=== PATIENT | male | born 1970 | race African-American/Black ===

== ENCOUNTER 2018-11-26 18:05 | Inpatient (IN) | payer MEDICAID, OTHER ==
[~2018-11-26] VITALS: Ht 182.9 cm; Wt 115.2 kg
[2018-11-26] MEDS ORDERED: HALOPERIDOL 5 MG TABLET PO ONE (18:30)
[2018-11-26] MEDS ORDERED: LORazepam 2 MG TABLET PO ONE (18:30)
[2018-11-26 18:42] LABS: BASOPHILS % (AUTO) 0.9 % (0.0-2.0); EOSINOPHILS % (AUTO) 2.1 % (1.0-6.0); HEMOGLOBIN 13.8 g/dL (13.5-17.5); LYMPHOCYTES % (AUTO) 36.1 % (22.0-44.0); MEAN CORPUSCULAR HEMOGLOBIN 31.1 pg (26.0-34.0); MEAN CORPUSCULAR HGB CONC 32.9 G/dL (31.0-37.0); MEAN CORPUSCULAR VOLUME 95 fL (80-100); MONOCYTES # (AUTO) 0.4 K/uL (0.1-1.0); MONOCYTES % (AUTO) 7.5 % (2.0-9.0); NEUTROPHILS # (AUTO) 2.9 K/uL (1.8-7.7); NEUTROPHILS % (AUTO) 53.4 % (40.0-70.0); PLATELET COUNT (AUTO) 195 K/uL (150-450); RED BLOOD CELL COUNT(AUTO) 4.44 MIL/uL (4.50-5.90); RED CELL DISTRIBUTION WIDTH 13.3 % (11.5-14.5)
[2018-11-26 18:57] LABS: ANION GAP 9 mmol/L (8-16); CARBON DIOXIDE 25 mmol/L (22-29); CHLORIDE 104 mmol/L (98-107); CREATININE 1.21 mg/dL (0.60-1.30); GLOMERULAR FILTR. RATE CALC > 60 mL/min (>60); GLUCOSE,RANDOM 185 mg/dL (70-110); POTASSIUM 3.2 mmol/L (3.5-5.1); SODIUM SERUM 138 mmol/L (136-145); UREA NITROGEN, BLOOD 8 mg/dL (7-18)
[2018-11-26 19:02] LABS: ALANINE AMINOTRANSFERASE 16 U/L (12-78); ALBUMIN 3.8 g/dL (3.4-5.0); ALKALINE PHOSPHATASE 56 U/L (46-116); ASPARTATE AMINOTRANSFERASE 20 U/L (15-37); BILIRUBIN,TOTAL 0.6 mg/dL (0.1-1.0); TOTAL PROTEIN, SERUM 7.4 g/dL (6.4-8.2)
[2018-11-26 20:53] LABS: AMPHET/METH SCREEN,URINE NEGATIVE (NEGATIVE); BARBITURATE SCREEN, URINE NEGATIVE (NEGATIVE); BENZODIAZEPINES SCREEN,URINE NEGATIVE (NEGATIVE); CANNABINOID SCREEN,URINE POSITIVE (NEGATIVE); COCAINE SCREEN,URINE NEGATIVE (NEGATIVE); METHADONE SCREEN, URINE NEGATIVE (NEGATIVE); OPIATE SCREEN,URINE NEGATIVE (NEGATIVE)
[2018-11-26 20:59] LABS: PHENCYCLIDINE SCREEN,URINE NEGATIVE (NEGATIVE)
[2018-11-26] MEDS ORDERED: ZOLPIDEM TARTRATE 10 MG TABLET PO PRN (22:30)
[2018-11-26] MEDS ORDERED: HALOPERIDOL 5 MG TABLET PO PRN (22:30)
[2018-11-26] MEDS ORDERED: LORazepam 2 MG TABLET PO PRN (22:30)
[2018-11-27 02:26] VITALS: BP 135/98
[2018-11-27] MEDS ORDERED: INFLUENZA VIRUS VACCINE QVS 2019-20 (3YR+)/PF 60 MCG/0.5 ML SYRINGE IM ONE (03:15)
[2018-11-27] MEDS ORDERED: PNEUMOCOCCAL VACCINE POLYVALENT 0.5 ML VIAL [PPSV23] IM ONE (03:15)
[2018-11-27 06:44] LABS: CHOL/HDL RATIO 4.1 (4.2-7.3)
[2018-11-27] MEDS ORDERED: POTASSIUM CHLORIDE 20 MEQ ER TABLET PO ONE (07:15)
[2018-11-27] MEDS: OLANZapine 5 MG TABLET PO SCH ×2 (10:30→20:46)
[2018-11-27] MEDS ORDERED: PETROLATUM,WHITE 28 GM JELLY TP PRN (15:15)
[2018-11-27] MEDS ORDERED: MAG HYDROX/AL HYDROX/SIMETH ES 30 ML SUSPENSION UDCUP PO PRN (15:15)
[2018-11-27] MEDS ORDERED: DOCUSATE SODIUM 100 MG CAPSULE PO PRN (15:15)
[2018-11-27] MEDS ORDERED: ACETAMINOPHEN 325 MG TABLET PO PRN (15:15)
[2018-11-27] MEDS ORDERED: MAGNESIUM HYDROXIDE SUSPENSION 30 ML UDCUP PO PRN (15:15)
[2018-11-27] MEDS ORDERED: IBUPROFEN 400 MG TABLET PO PRN (15:15)
[2018-11-27] MEDS ORDERED: ONDANSETRON HCL 4 MG TABLET PO PRN (15:15)
[2018-11-27] MEDS ORDERED: GuaiFENesin/D-METHORPHAN [SUGAR-FREE] 200-20MG/10 ML SYRUP UDCUP PO PRN (15:15)
[2018-11-27] MEDS ORDERED: NICOTINE 14 MG/24 HOUR PATCH TD PRN (15:15)
[2018-11-27] MEDS ORDERED: LOPERAMIDE HCL 2 MG CAPSULE PO PRN (15:15)
[2018-11-27] MEDS ORDERED: ALBUTEROL SULFATE HFA 90 MCG/PUFF 8 GM INHALER IH PRN (15:15)
[2018-11-27] MEDS ORDERED: CloNIDine HCL 0.1 MG TABLET PO PRN (15:15)
[2018-11-27 17:20] VITALS: BP 142/90
[2018-11-28 08:32] VITALS: BP 166/107
[2018-11-28] MEDS: OLANZapine 5 MG TABLET PO SCH ×2 (09:00→20:41)
[2018-11-28 17:45] VITALS: BP 141/87
[2018-11-29 06:44] VITALS: BP 147/94
[2018-11-29 08:55] VITALS: BP 151/87
[2018-11-29] MEDS: OLANZapine 5 MG TABLET PO SCH ×2 (09:16→21:01)
[2018-11-29 18:13] VITALS: BP 141/87
[2018-11-30 08:30] VITALS: BP 151/91
[2018-11-30] MEDS: OLANZapine 5 MG TABLET PO SCH ×2 (09:06→20:22)
[2018-11-30 17:24] VITALS: BP 127/71
[2018-12-01 08:47] VITALS: BP 115/80
[2018-12-01] MEDS: OLANZapine 5 MG TABLET PO SCH ×2 (08:59→20:17)
[2018-12-01 17:00] VITALS: BP 119/71
[2018-12-02 08:52] VITALS: BP 137/82
[2018-12-02] MEDS ORDERED: OLAN5TAB2 PO (08:52)
[2018-12-02] MEDS: OLANZapine 5 MG TABLET PO SCH (09:32)
== END 2018-12-02 10:35 | disposition home or self-care (01) | DRG 750 ==
LOC: EMS 18:05 → 3EI 23:00
PROC: 3E02340 Introduction of Influenza Vaccine into Muscle, Percutaneous Approach (ICD-10-PCS; principal; 2018-11-27)
PROC: 3E0234Z Introduction of Serum, Toxoid and Vaccine into Muscle, Percutaneous Approach (ICD-10-PCS; 2018-11-27)
DX: F20.0 Paranoid schizophrenia (principal); Z59.0 Homelessness; E87.6 Hypokalemia; F12.10 Cannabis abuse, uncomplicated; F31.9 Bipolar disorder, unspecified; R73.9 Hyperglycemia, unspecified; Z71.51 Drug abuse counseling and surveillance of drug abuser; Z23 Encounter for immunization
CPT/HCPCS: 84132; 90686; 90732; G0480

== ENCOUNTER 2019-02-09 20:24 | Emergency (ER) | payer MEDICAID, OTHER ==
[~2019-02-09] VITALS: Ht 182.9 cm; Wt 121.4 kg
[~2019-02-09 20:24] MED LIST: OLAN5TAB2 PO
[2019-02-09 21:32] LABS: BASOPHILS % (AUTO) 0.7 % (0.0-2.0); EOSINOPHILS % (AUTO) 1.9 % (1.0-6.0); HEMOGLOBIN 13.5 g/dL (13.5-17.5); LYMPHOCYTES # (AUTO) 2.2 K/uL (1.0-4.8); LYMPHOCYTES % (AUTO) 37.3 % (22.0-44.0); MEAN CORPUSCULAR HEMOGLOBIN 31.5 pg (26.0-34.0); MEAN CORPUSCULAR HGB CONC 33.7 G/dL (31.0-37.0); MEAN CORPUSCULAR VOLUME 94 fL (80-100); MONOCYTES # (AUTO) 0.7 K/uL (0.1-1.0); MONOCYTES % (AUTO) 11.8 % (2.0-9.0); NEUTROPHILS # (AUTO) 2.8 K/uL (1.8-7.7); NEUTROPHILS % (AUTO) 48.3 % (40.0-70.0); PLATELET COUNT (AUTO) 186 K/uL (150-450); RED BLOOD CELL COUNT(AUTO) 4.28 MIL/uL (4.50-5.90); RED CELL DISTRIBUTION WIDTH 13.3 % (11.5-14.5)
[2019-02-09 21:42] LABS: ANION GAP 8 mmol/L (8-16); CALCIUM, TOTAL 9.1 mg/dL (8.8-10.5); CARBON DIOXIDE 27 mmol/L (22-29); CHLORIDE 105 mmol/L (98-107); CREATININE 1.14 mg/dL (0.60-1.30); GLOMERULAR FILTR. RATE CALC > 60 mL/min (>60); GLUCOSE,RANDOM 86 mg/dL (70-110); POTASSIUM 3.4 mmol/L (3.5-5.1); SODIUM SERUM 140 mmol/L (136-145); UREA NITROGEN, BLOOD 12 mg/dL (7-18)
[2019-02-09 21:48] LABS: ALANINE AMINOTRANSFERASE 19 U/L (12-78); ALBUMIN 3.6 g/dL (3.4-5.0); ALKALINE PHOSPHATASE 65 U/L (46-116); ASPARTATE AMINOTRANSFERASE 17 U/L (15-37); BILIRUBIN,TOTAL 0.3 mg/dL (0.1-1.0); TOTAL PROTEIN, SERUM 7.6 g/dL (6.4-8.2)
[2019-02-10] MEDS ORDERED: ACETAMINOPHEN 500 MG TABLET PO ONE (01:45)
[2019-02-10] MEDS ORDERED: POTASSIUM CHLORIDE 10% 40 MEQ/30 ML LIQUID UDCUP PO ONE (02:00)
[2019-02-10 02:52] VITALS: BP 159/98
[2019-02-10 02:53] LABS: AMPHET/METH SCREEN,URINE NEGATIVE (NEGATIVE); BARBITURATE SCREEN, URINE NEGATIVE (NEGATIVE); BENZODIAZEPINES SCREEN,URINE NEGATIVE (NEGATIVE); CANNABINOID SCREEN,URINE POSITIVE (NEGATIVE); COCAINE SCREEN,URINE NEGATIVE (NEGATIVE); METHADONE SCREEN, URINE NEGATIVE (NEGATIVE); OPIATE SCREEN,URINE NEGATIVE (NEGATIVE)
[2019-02-10 03:05] LABS: PHENCYCLIDINE SCREEN,URINE NEGATIVE (NEGATIVE)
== END 2019-02-10 02:56 | disposition home or self-care (01) ==
LOC: EMS 21:40
DX: F20.9 Schizophrenia, unspecified (principal); E87.6 Hypokalemia; F31.9 Bipolar disorder, unspecified; I10 Essential (primary) hypertension; F12.90 Cannabis use, unspecified, uncomplicated; F17.210 Nicotine dependence, cigarettes, uncomplicated; Z59.0 Homelessness
CPT/HCPCS: 36415; 80053; 80307; 85025; 99283; 99406; G0480

== ENCOUNTER 2019-04-17 20:09 | Emergency (ER) | payer OTHER ==
[~2019-04-17] VITALS: Ht 182.9 cm; Wt 102.3 kg
[2019-04-18 00:26] VITALS: BP 145/78
== END 2019-04-18 02:04 | disposition home or self-care (01) ==
LOC: EMS 20:11
DX: Z71.1 Person with feared health complaint in whom no diagnosis is made (principal); I10 Essential (primary) hypertension; F31.9 Bipolar disorder, unspecified; F20.9 Schizophrenia, unspecified; F17.210 Nicotine dependence, cigarettes, uncomplicated

== ENCOUNTER 2019-04-25 02:10 | Emergency (ER) | payer OTHER ==
[~2019-04-25] VITALS: Ht 182.9 cm; Wt 113.6 kg
[2019-04-25 02:24] VITALS: BP 137/89
[2019-04-25] MEDS ORDERED: ACETAMINOPHEN 500 MG TABLET PO ONE (04:15)
== END 2019-04-25 04:37 | disposition home or self-care (01) ==
LOC: EMS 02:10
DX: R52 Pain, unspecified (principal); F17.210 Nicotine dependence, cigarettes, uncomplicated; F12.90 Cannabis use, unspecified, uncomplicated

== ENCOUNTER 2019-10-22 16:30 | Emergency (ER) | payer MEDICAID, OTHER ==
[~2019-10-22] VITALS: Ht 182.9 cm; Wt 106.8 kg
[2019-10-22 19:46] LABS: BASOPHILS % (AUTO) 0.5 % (0.0-2.0); EOSINOPHILS % (AUTO) 1.7 % (1.0-6.0); HEMATOCRIT 39.6 % (41-53); HEMOGLOBIN 12.7 g/dL (13.5-17.5); LYMPHOCYTES # (AUTO) 2.1 K/uL (1.0-4.8); LYMPHOCYTES % (AUTO) 40.3 % (22.0-44.0); MEAN CORPUSCULAR HEMOGLOBIN 30.6 pg (26.0-34.0); MEAN CORPUSCULAR HGB CONC 32.1 G/dL (31.0-37.0); MEAN CORPUSCULAR VOLUME 95 fL (80-100); MONOCYTES # (AUTO) 0.6 K/uL (0.1-1.0); MONOCYTES % (AUTO) 11.5 % (2.0-9.0); NEUTROPHILS # (AUTO) 2.4 K/uL (1.8-7.7); PLATELET COUNT (AUTO) 187 K/uL (150-450); RED BLOOD CELL COUNT(AUTO) 4.16 MIL/uL (4.50-5.90); RED CELL DISTRIBUTION WIDTH 13.7 % (11.5-14.5)
[2019-10-22 20:03] LABS: ANION GAP 9 mmol/L (8-16); CALCIUM, TOTAL 9.2 mg/dL (8.8-10.5); CARBON DIOXIDE 24 mmol/L (22-29); CHLORIDE 105 mmol/L (98-107); CREATININE 0.96 mg/dL (0.60-1.30); GLOMERULAR FILTR. RATE CALC > 60 mL/min (>60); GLUCOSE,RANDOM 93 mg/dL (70-110); POTASSIUM 3.8 mmol/L (3.5-5.1); SODIUM SERUM 138 mmol/L (136-145); UREA NITROGEN, BLOOD 13 mg/dL (7-18)
[2019-10-22 20:09] LABS: ALANINE AMINOTRANSFERASE 33 U/L (12-78); ALBUMIN 3.8 g/dL (3.4-5.0); ALKALINE PHOSPHATASE 55 U/L (46-116); ASPARTATE AMINOTRANSFERASE 25 U/L (15-37); BILIRUBIN,TOTAL 0.4 mg/dL (0.1-1.0); TOTAL PROTEIN, SERUM 7.8 g/dL (6.4-8.2)
[2019-10-22 20:16] LABS: AMPHET/METH SCREEN,URINE NEGATIVE (NEGATIVE); BARBITURATE SCREEN, URINE NEGATIVE (NEGATIVE); BENZODIAZEPINES SCREEN,URINE NEGATIVE (NEGATIVE); CANNABINOID SCREEN,URINE POSITIVE (NEGATIVE); COCAINE SCREEN,URINE NEGATIVE (NEGATIVE); METHADONE SCREEN, URINE NEGATIVE (NEGATIVE); OPIATE SCREEN,URINE NEGATIVE (NEGATIVE)
[2019-10-22 20:23] LABS: PHENCYCLIDINE SCREEN,URINE NEGATIVE (NEGATIVE)
[2019-10-22 20:29] VITALS: BP 130/88
== END 2019-10-22 20:29 | disposition home or self-care (01) ==
LOC: EMS 16:32
DX: F20.9 Schizophrenia, unspecified (principal); I10 Essential (primary) hypertension; F31.9 Bipolar disorder, unspecified; F17.210 Nicotine dependence, cigarettes, uncomplicated
CPT/HCPCS: 36415; 80053; 80307; 85025; 99285; G0480

== ENCOUNTER 2020-02-09 20:33 | Emergency (ER) | payer OTHER ==
[~2020-02-09] VITALS: Ht 182.9 cm; Wt 106.8 kg
[~2020-02-09 20:33] MED LIST changes: +BUSP10TA23 PO; +CARB100 PO; +CITA10TA99 PO; -OLAN5TAB2 PO
[2020-02-10] MEDS ORDERED: OLANZapine 5 MG TABLET PO ONE (00:15)
[2020-02-10 03:23] VITALS: BP 134/74
== END 2020-02-10 03:49 | disposition home or self-care (01) ==
LOC: EDBD 20:33 → EMS 20:33
DX: F22 Delusional disorders (principal); I10 Essential (primary) hypertension; F31.9 Bipolar disorder, unspecified; F20.9 Schizophrenia, unspecified; F12.90 Cannabis use, unspecified, uncomplicated; F17.210 Nicotine dependence, cigarettes, uncomplicated; Z79.899 Other long term (current) drug therapy
CPT/HCPCS: Z7502; Z7610

== ENCOUNTER 2020-02-10 18:30 | Emergency (ER) | payer MEDICAID, OTHER ==
[~2020-02-10] VITALS: Ht 177.8 cm; Wt 122.7 kg
[2020-02-10 18:36] VITALS: BP 137/84
[2020-02-10] MEDS ORDERED: ACETAMINOPHEN 500 MG TABLET PO ONE (19:45)
== END 2020-02-10 20:12 | disposition home or self-care (01) ==
LOC: EMS 18:34
DX: F25.9 Schizoaffective disorder, unspecified (principal); F31.9 Bipolar disorder, unspecified; I10 Essential (primary) hypertension; F17.210 Nicotine dependence, cigarettes, uncomplicated; F12.90 Cannabis use, unspecified, uncomplicated; Z79.899 Other long term (current) drug therapy
CPT/HCPCS: Z7502; Z7610

== ENCOUNTER 2021-04-13 11:28 | Emergency (ER) | payer SELFPAY ==
[2021-04-13] MEDS ORDERED: DiphenhydrAMINE HCL 50 MG/ML VIAL ONE (12:28)
[2021-04-13] MEDS ORDERED: HALOPERIDOL LACTATE 5 MG/ML VIAL ONE (12:28)
[2021-04-13] MEDS ORDERED: LORazepam 2 MG/ML VIAL ONE (12:28)
[2021-04-13] MEDS ORDERED: LORazepam 2 MG/ML VIAL IM ONE (12:30)
[2021-04-13] MEDS ORDERED: DiphenhydrAMINE HCL 50 MG/ML VIAL IM ONE (12:30)
[2021-04-13] MEDS ORDERED: HALOPERIDOL LACTATE 5 MG/ML VIAL IM ONE (12:30)
[2021-04-13] MEDS ORDERED: HALOPERIDOL 5 MG TABLET ONE (12:33)
[2021-04-13] MEDS ORDERED: DiphenhydrAMINE HCL 50 MG CAPSULE ONE (12:33)
[2021-04-13] MEDS ORDERED: LORazepam 2 MG TABLET ONE (12:33)
[2021-04-13] MEDS ORDERED: LORazepam 2 MG TABLET PO ONE (12:45)
[2021-04-13] MEDS ORDERED: DiphenhydrAMINE HCL 25 MG CAPSULE PO ONE (12:45)
[2021-04-13] MEDS ORDERED: HALOPERIDOL 5 MG TABLET PO ONE (12:45)
== END 2021-04-13 16:22 | disposition home or self-care (01) ==
LOC: EMS 11:28
DX: R45.6 Violent behavior (principal); F20.9 Schizophrenia, unspecified; I10 Essential (primary) hypertension; F31.9 Bipolar disorder, unspecified; F12.90 Cannabis use, unspecified, uncomplicated; F17.210 Nicotine dependence, cigarettes, uncomplicated; Z79.899 Other long term (current) drug therapy
CPT/HCPCS: 99285; J1200; J1630; J2060

== ENCOUNTER 2021-05-07 19:47 | Emergency (ER) | payer SELFPAY ==
[~2021-05-07] VITALS: Ht 190.5 cm; Wt 102.3 kg
[2021-05-07 19:52] VITALS: BP 109/57
== END 2021-05-07 22:33 | disposition left against medical advice (07) ==
LOC: EMS 19:47
DX: F25.9 Schizoaffective disorder, unspecified (principal); F31.9 Bipolar disorder, unspecified; I10 Essential (primary) hypertension; F17.210 Nicotine dependence, cigarettes, uncomplicated; F12.90 Cannabis use, unspecified, uncomplicated
CPT/HCPCS: 99281; Z7502

== ENCOUNTER 2022-01-25 06:58 | Emergency (ER) | payer OTHER ==
[~2022-01-25] VITALS: Ht 190.5 cm; Wt 113.6 kg
[2022-01-25 07:11] VITALS: BP 155/83
[2022-01-25] MEDS ORDERED: ACETAMINOPHEN 500 MG TABLET PO ONE (07:30)
[2022-01-25] MEDS ORDERED: BACITRACIN 0.9 GM PACKET OINTMENT TP ONE (07:30)
== END 2022-01-25 07:40 | disposition home or self-care (01) ==
LOC: EMS 07:01
DX: S90.414A Abrasion, right lesser toe(s), initial encounter (principal); F31.9 Bipolar disorder, unspecified; I10 Essential (primary) hypertension; F20.9 Schizophrenia, unspecified; F17.210 Nicotine dependence, cigarettes, uncomplicated; F12.90 Cannabis use, unspecified, uncomplicated; X58.XXXA Exposure to other specified factors, initial encounter; Y93.89 Activity, other specified; Y92.89 Other specified places as the place of occurrence of the external cause; Y99.8 Other external cause status
CPT/HCPCS: 99283

== ENCOUNTER 2022-01-28 17:11 | Emergency (ER) | payer OTHER ==
[~2022-01-28] VITALS: Ht 182.9 cm; Wt 113.6 kg
[2022-01-28 19:37] VITALS: BP 158/72
[2022-01-29] MEDS ORDERED: TraMADol HCL 50 MG TABLET PO ONE
[2022-01-29] MEDS ORDERED: AMOXICILLIN TRIHYDRATE 250 MG CAPSULE PO ONE
[2022-01-29] MEDS ORDERED: AMOX250C4 PO (00:02)
== END 2022-01-29 01:10 | disposition home or self-care (01) ==
LOC: EMS 17:15
DX: L03.031 Cellulitis of right toe (principal); F31.9 Bipolar disorder, unspecified; I10 Essential (primary) hypertension; F20.9 Schizophrenia, unspecified; F17.210 Nicotine dependence, cigarettes, uncomplicated; F12.90 Cannabis use, unspecified, uncomplicated
CPT/HCPCS: 99283

== ENCOUNTER 2022-08-08 11:14 | Emergency (ER) | payer OTHER ==
[~2022-08-08] VITALS: Ht 190.5 cm; Wt 106.8 kg
[~2022-08-08 11:14] MED LIST changes: +AMOX250C4 PO; +PERM60CR19 TP; +PIPE59SH TP
[2022-08-08 11:16] VITALS: TEMP 98.9
[2022-08-08] MEDS ORDERED: PERMETHRIN 1% 60 ML LOTION TP ONE (13:30)
[2022-08-08 14:45] VITALS: BP 132/76; PULSE 89; RESP 18
== END 2022-08-08 14:47 | disposition home or self-care (01) ==
LOC: EMS 11:29
DX: B85.3 Phthiriasis (principal); F31.9 Bipolar disorder, unspecified; I10 Essential (primary) hypertension; F20.9 Schizophrenia, unspecified; F17.210 Nicotine dependence, cigarettes, uncomplicated; F12.90 Cannabis use, unspecified, uncomplicated; Z59.00 Homelessness unspecified
CPT/HCPCS: 99282; Z7502; Z7610

== ENCOUNTER 2022-08-11 01:26 | Emergency (ER) | payer OTHER ==
[~2022-08-11] VITALS: Ht 190.5 cm; Wt 106.8 kg
[~2022-08-11 01:26] MED LIST changes: -AMOX250C4 PO; -PERM60CR19 TP; -PIPE59SH TP
[2022-08-11 03:15] VITALS: BP 168/79; PULSE 86; RESP 18; TEMP 98.3
== END 2022-08-11 04:42 | disposition home or self-care (01) ==
LOC: EMS 01:33
DX: M79.672 Pain in left foot (principal); M79.671 Pain in right foot; F31.9 Bipolar disorder, unspecified; I10 Essential (primary) hypertension; F20.9 Schizophrenia, unspecified; F17.210 Nicotine dependence, cigarettes, uncomplicated; F12.90 Cannabis use, unspecified, uncomplicated; Z59.00 Homelessness unspecified
CPT/HCPCS: 99281; Z7502

== ENCOUNTER 2022-08-20 11:22 | Emergency (ER) | payer OTHER ==
[~2022-08-20] VITALS: Ht 188 cm; Wt 118.2 kg
[2022-08-20 11:50] VITALS: TEMP 98.3
[2022-08-20 13:50] VITALS: BP 139/86; PULSE 83; RESP 16
[2022-08-20] MEDS ORDERED: PERMETHRIN 5% 60 GM CREAM TP ONE (14:00)
== END 2022-08-20 14:17 | disposition home or self-care (01) ==
LOC: EMS 11:26
DX: B85.2 Pediculosis, unspecified (principal); F31.9 Bipolar disorder, unspecified; I10 Essential (primary) hypertension; F20.9 Schizophrenia, unspecified; F12.90 Cannabis use, unspecified, uncomplicated; F17.210 Nicotine dependence, cigarettes, uncomplicated; Z59.00 Homelessness unspecified
CPT/HCPCS: 99282; Z7502; Z7610

== ENCOUNTER 2022-08-25 19:41 | Emergency (ER) | payer OTHER ==
[~2022-08-25] VITALS: Ht 190.5 cm; Wt 111.4 kg
[2022-08-25 19:56] VITALS: TEMP 97.9
[2022-08-25] MEDS ORDERED: IVERMECTIN 3 MG TABLET PO ONE (22:00)
[2022-08-25 22:30] VITALS: BP 139/72; PULSE 88; RESP 18
== END 2022-08-25 23:00 | disposition home or self-care (01) ==
LOC: EMS 19:45
DX: B85.0 Pediculosis due to Pediculus humanus capitis (principal); I10 Essential (primary) hypertension; F31.9 Bipolar disorder, unspecified; F20.9 Schizophrenia, unspecified; F17.210 Nicotine dependence, cigarettes, uncomplicated; F12.90 Cannabis use, unspecified, uncomplicated
CPT/HCPCS: 99283

== ENCOUNTER 2022-10-09 18:30 | Emergency (ER) | payer OTHER ==
[~2022-10-09 18:30] MED LIST changes: -CARB100 PO; +CARB100T12 PO
== END 2022-10-09 19:40 | disposition home or self-care (01) ==
LOC: EMS 18:36
DX: F20.0 Paranoid schizophrenia (principal); F69 Unspecified disorder of adult personality and behavior; F31.9 Bipolar disorder, unspecified; I10 Essential (primary) hypertension; F17.210 Nicotine dependence, cigarettes, uncomplicated; F12.90 Cannabis use, unspecified, uncomplicated
CPT/HCPCS: 99285; Z7502

== ENCOUNTER 2022-11-13 10:07 | Emergency (ER) | payer OTHER ==
[~2022-11-13] VITALS: Ht 185.4 cm; Wt 104.5 kg
[2022-11-13 10:45] VITALS: BP 133/64; PULSE 89; RESP 18; TEMP 98.2
== END 2022-11-13 11:34 | disposition left against medical advice (07) ==
LOC: EMS 10:14
DX: S01.81XA Laceration without foreign body of other part of head, initial encounter (principal); Z53.21 Procedure and treatment not carried out due to patient leaving prior to being seen by health care provider; W18.39XA Other fall on same level, initial encounter; Y93.89 Activity, other specified; Y92.89 Other specified places as the place of occurrence of the external cause; Y99.8 Other external cause status
CPT/HCPCS: 99281; Z7502

== ENCOUNTER 2022-11-22 22:43 | Emergency (ER) | payer OTHER ==
[~2022-11-22] VITALS: Ht 180.3 cm; Wt 106.8 kg
[2022-11-22 22:47] VITALS: BP 154/59; PULSE 73; RESP 13; TEMP 99.6
[2022-11-22] MEDS ORDERED: IBUP-1554 PO (23:26)
[2022-11-22] MEDS ORDERED: PENI500T2 PO (23:26)
[2022-11-22] MEDS ORDERED: IBUPROFEN 600 MG TABLET PO ONE (23:30)
== END 2022-11-23 00:47 | disposition home or self-care (01) ==
LOC: EMS 22:44
DX: K08.89 Other specified disorders of teeth and supporting structures (principal); F20.9 Schizophrenia, unspecified; F31.9 Bipolar disorder, unspecified; I10 Essential (primary) hypertension; F17.210 Nicotine dependence, cigarettes, uncomplicated; F12.90 Cannabis use, unspecified, uncomplicated; Z59.00 Homelessness unspecified
CPT/HCPCS: 99283

== ENCOUNTER 2023-08-14 22:30 | Emergency (ER) | payer OTHER ==
[~2023-08-14] VITALS: Ht 180.3 cm; Wt 100.0 kg
[2023-08-14 22:43] VITALS: BP 138/83; PULSE 91; RESP 16; TEMP 98
[2023-08-15] MEDS: ACETAMINOPHEN 500 MG TABLET PO ONE (00:16)
== END 2023-08-15 01:22 | disposition home or self-care (01) ==
LOC: EMS 22:30
DX: M79.673 Pain in unspecified foot (principal); I10 Essential (primary) hypertension; F20.9 Schizophrenia, unspecified
CPT/HCPCS: 99282; Z7502; Z7610

== ENCOUNTER 2023-08-15 20:43 | Emergency (ER) | payer OTHER ==
[~2023-08-15] VITALS: Ht 188 cm; Wt 100.5 kg
[2023-08-15 22:43] VITALS: BP 148/98; PULSE 90; RESP 18; TEMP 98.1
[2023-08-16] MEDS: ACETAMINOPHEN 325 MG TABLET PO ONE (01:49)
== END 2023-08-16 04:14 | disposition home or self-care (01) ==
LOC: EMS 20:46
DX: M79.673 Pain in unspecified foot (principal); I10 Essential (primary) hypertension; F20.9 Schizophrenia, unspecified
CPT/HCPCS: 99282; Z7502; Z7610

== ENCOUNTER 2023-08-16 21:47 | Emergency (ER) | payer OTHER ==
[~2023-08-16] VITALS: Ht 182.9 cm; Wt 120.0 kg
[2023-08-16 21:54] VITALS: TEMP 97.8
[2023-08-16] MEDS: ACETAMINOPHEN 500 MG TABLET PO ONE (22:16)
[2023-08-17 04:19] VITALS: BP 151/92; PULSE 4; RESP 18
== END 2023-08-17 04:22 | disposition home or self-care (01) ==
LOC: EMS 21:47
DX: M79.673 Pain in unspecified foot (principal); I10 Essential (primary) hypertension; F20.9 Schizophrenia, unspecified; Z59.00 Homelessness unspecified
CPT/HCPCS: 99282; Z7502; Z7610

== ENCOUNTER 2023-09-13 18:22 | Emergency (ER) | payer OTHER ==
[~2023-09-13] VITALS: Ht 182.9 cm; Wt 100.5 kg
[2023-09-13 18:32] VITALS: BP 131/86; PULSE 86; RESP 18; TEMP 98.2
== END 2023-09-13 21:33 | disposition left against medical advice (07) ==
LOC: EMS 18:22
DX: M79.672 Pain in left foot (principal); M79.671 Pain in right foot; Z53.21 Procedure and treatment not carried out due to patient leaving prior to being seen by health care provider

== ENCOUNTER 2023-09-26 05:58 | Emergency (ER) | payer OTHER ==
[~2023-09-26] VITALS: Ht 180.3 cm; Wt 102.3 kg
[2023-09-26 06:00] VITALS: BP 158/90; PULSE 81; RESP 16; TEMP 98
== END 2023-09-26 07:02 | disposition left against medical advice (07) ==
LOC: EMS 05:58
DX: G89.29 Other chronic pain (principal); M79.673 Pain in unspecified foot; Z53.21 Procedure and treatment not carried out due to patient leaving prior to being seen by health care provider

== ENCOUNTER 2023-09-27 20:07 | Emergency (ER) | payer OTHER ==
[~2023-09-27] VITALS: Ht 180.3 cm; Wt 100.5 kg
[2023-09-27 20:18] VITALS: BP 144/55; PULSE 85; RESP 20; TEMP 98.4
== END 2023-09-27 22:24 | disposition home or self-care (01) ==
LOC: EMS 20:07
DX: M79.671 Pain in right foot (principal); M79.672 Pain in left foot; F25.9 Schizoaffective disorder, unspecified; I10 Essential (primary) hypertension; Z76.5 Malingerer [conscious simulation]
CPT/HCPCS: 99281; Z7502

== ENCOUNTER 2023-10-03 22:53 | Emergency (ER) | payer OTHER ==
[~2023-10-03] VITALS: Ht 185.4 cm; Wt 100.5 kg
[2023-10-03 23:02] VITALS: BP 145/86; PULSE 91; RESP 20; TEMP 98.2
[2023-10-04] MEDS: ACETAMINOPHEN 325 MG TABLET PO ONE (04:01)
== END 2023-10-04 04:06 | disposition home or self-care (01) ==
LOC: EMS 22:55
DX: G89.29 Other chronic pain (principal); M79.672 Pain in left foot; I10 Essential (primary) hypertension
CPT/HCPCS: 99282; Z7502; Z7610

== ENCOUNTER 2023-10-04 20:38 | Emergency (ER) | payer OTHER ==
[~2023-10-04] VITALS: Ht 190.5 cm; Wt 100.5 kg
[2023-10-04 20:44] VITALS: BP 153/73; PULSE 89; RESP 16; TEMP 98.1
== END 2023-10-04 22:34 | disposition home or self-care (01) ==
LOC: EMS 20:38
DX: M79.672 Pain in left foot (principal); M79.671 Pain in right foot; I10 Essential (primary) hypertension; F20.9 Schizophrenia, unspecified; Z76.5 Malingerer [conscious simulation]; Z59.00 Homelessness unspecified
CPT/HCPCS: 99281; Z7502

== ENCOUNTER 2023-10-05 23:26 | Emergency (ER) | payer OTHER ==
[~2023-10-05] VITALS: Ht 190.5 cm; Wt 100.5 kg
[2023-10-05 23:36] VITALS: BP 156/64; PULSE 86; RESP 16; TEMP 98; O2SAT 97
== END 2023-10-06 00:19 | disposition home or self-care (01) ==
LOC: EMS 23:26
DX: M79.672 Pain in left foot (principal); M79.671 Pain in right foot; I10 Essential (primary) hypertension; F20.9 Schizophrenia, unspecified; Z76.5 Malingerer [conscious simulation]
CPT/HCPCS: 99281; Z7502

== ENCOUNTER 2023-10-08 22:55 | Emergency (ER) | payer OTHER ==
[~2023-10-08] VITALS: Ht 190.5 cm; Wt 100.5 kg
[2023-10-08 22:59] VITALS: BP 151/82; PULSE 75; RESP 16; TEMP 98.4; O2SAT 80
[2023-10-09] MEDS: ACETAMINOPHEN 325 MG TABLET PO ONE (01:16)
== END 2023-10-09 06:30 | disposition home or self-care (01) ==
LOC: EMS 22:55
DX: G89.29 Other chronic pain (principal); M79.673 Pain in unspecified foot; I10 Essential (primary) hypertension; F20.9 Schizophrenia, unspecified
CPT/HCPCS: 99282; Z7502; Z7610

== ENCOUNTER 2023-10-09 21:55 | Emergency (ER) | payer OTHER ==
[~2023-10-09] VITALS: Ht 190.5 cm; Wt 100.0 kg
[2023-10-09 22:25] VITALS: BP 132/83; PULSE 77; RESP 18; TEMP 98.2; O2SAT 98
[2023-10-10] MEDS: ACETAMINOPHEN 325 MG TABLET PO ONE (03:18)
== END 2023-10-10 04:47 | disposition home or self-care (01) ==
LOC: EMS 21:55
DX: G89.29 Other chronic pain (principal); M79.672 Pain in left foot; M79.671 Pain in right foot; I10 Essential (primary) hypertension; F20.9 Schizophrenia, unspecified
CPT/HCPCS: 99282; Z7502; Z7610

== ENCOUNTER 2023-10-11 20:27 | Emergency (ER) | payer OTHER | END 2023-10-11 21:46 | disposition left against medical advice (07) | LOC: EMS 20:27 | DX: Z53.21 Procedure and treatment not carried out due to patient leaving prior to being seen by health care provider (principal) ==

== ENCOUNTER 2023-10-14 00:53 | Emergency (ER) | payer OTHER ==
[~2023-10-14] VITALS: Ht 185.4 cm; Wt 95.0 kg
[2023-10-14 01:06] VITALS: BP 150/90; PULSE 92; RESP 18; TEMP 98; O2SAT 100
[2023-10-14] MEDS: ASPIRIN 325 MG TABLET PO ONE (01:46)
[2023-10-14] MEDS: ACETAMINOPHEN 500 MG TABLET PO ONE (01:46)
== END 2023-10-14 01:55 | disposition home or self-care (01) ==
LOC: EMS 00:53
DX: M79.672 Pain in left foot (principal); M79.671 Pain in right foot; I10 Essential (primary) hypertension; F20.9 Schizophrenia, unspecified; Z76.5 Malingerer [conscious simulation]
CPT/HCPCS: 99283

== ENCOUNTER 2023-10-14 19:38 | Emergency (ER) | payer OTHER ==
[~2023-10-14] VITALS: Ht 185.4 cm; Wt 95.0 kg
[2023-10-14 19:45] VITALS: BP 150/99; PULSE 88; RESP 18; TEMP 98.3; O2SAT 97
[2023-10-14] MEDS: ACETAMINOPHEN 500 MG TABLET PO ONE (22:37)
[2023-10-14] MEDS: ASPIRIN 325 MG TABLET PO ONE (22:37)
== END 2023-10-14 22:52 | disposition home or self-care (01) ==
LOC: EMS 19:38
DX: M79.672 Pain in left foot (principal); M79.671 Pain in right foot; I10 Essential (primary) hypertension; Z76.5 Malingerer [conscious simulation]; F20.9 Schizophrenia, unspecified; Z59.00 Homelessness unspecified
CPT/HCPCS: 99283

== ENCOUNTER 2023-10-16 20:23 | Emergency (ER) | payer OTHER ==
[~2023-10-16] VITALS: Ht 177.8 cm; Wt 81.8 kg
[2023-10-16] MEDS: ACETAMINOPHEN 500 MG TABLET PO ONE (22:15)
[2023-10-16 22:27] VITALS: BP 147/71; PULSE 74; RESP 15; TEMP 98; O2SAT 100
== END 2023-10-16 22:31 | disposition home or self-care (01) ==
LOC: EMS 20:26
DX: M79.671 Pain in right foot (principal); M79.672 Pain in left foot; Z76.5 Malingerer [conscious simulation]; I10 Essential (primary) hypertension
CPT/HCPCS: 99282; Z7502; Z7610

== ENCOUNTER 2023-10-23 03:54 | Emergency (ER) | payer OTHER ==
[~2023-10-23] VITALS: Ht 190.5 cm; Wt 100.5 kg
[2023-10-23 03:58] VITALS: BP 154/81; PULSE 83; RESP 20; TEMP 99.2; O2SAT 97
[2023-10-23] MEDS: ACETAMINOPHEN 500 MG TABLET PO ONE (04:27)
== END 2023-10-23 04:51 | disposition home or self-care (01) ==
LOC: EMS 03:55
DX: G89.29 Other chronic pain (principal); M79.671 Pain in right foot; M79.672 Pain in left foot; I10 Essential (primary) hypertension
CPT/HCPCS: 99282; Z7502; Z7610

== ENCOUNTER 2023-10-26 19:33 | Emergency (ER) | payer OTHER ==
[~2023-10-26] VITALS: Ht 177.8 cm; Wt 81.8 kg
[2023-10-26 19:41] VITALS: BP 153/109; PULSE 88; RESP 18; TEMP 98; O2SAT 97
[2023-10-27] MEDS: ACETAMINOPHEN 500 MG TABLET PO ONE (00:38)
== END 2023-10-27 00:41 | disposition home or self-care (01) ==
LOC: EMS 19:35
DX: S90.812A Abrasion, left foot, initial encounter (principal); S90.811A Abrasion, right foot, initial encounter; I10 Essential (primary) hypertension; F20.9 Schizophrenia, unspecified; X58.XXXA Exposure to other specified factors, initial encounter; Y93.89 Activity, other specified; Y92.89 Other specified places as the place of occurrence of the external cause; Y99.8 Other external cause status
CPT/HCPCS: 99282; Z7502; Z7610

== ENCOUNTER 2023-10-27 19:07 | Emergency (ER) | payer OTHER ==
[~2023-10-27] VITALS: Ht 177.8 cm; Wt 75.0 kg
[2023-10-27 19:11] VITALS: BP 156/90; PULSE 92; RESP 18; TEMP 98.7; O2SAT 99
[2023-10-27] MEDS: ACETAMINOPHEN 500 MG TABLET PO ONE (19:36)
== END 2023-10-27 20:12 | disposition home or self-care (01) ==
LOC: EMS 19:09
DX: G89.29 Other chronic pain (principal); M79.671 Pain in right foot; M79.672 Pain in left foot; I10 Essential (primary) hypertension
CPT/HCPCS: 99282; Z7502; Z7610

== ENCOUNTER 2023-10-29 06:00 | Emergency (ER) | payer OTHER ==
[~2023-10-29] VITALS: Ht 177.8 cm; Wt 80.0 kg
[2023-10-29 06:01] VITALS: BP 138/86; PULSE 90; RESP 15; TEMP 98.1; O2SAT 100
[2023-10-29] MEDS: ACETAMINOPHEN 500 MG TABLET PO ONE (07:08)
== END 2023-10-29 07:43 | disposition home or self-care (01) ==
LOC: EMS 06:01
DX: G89.29 Other chronic pain (principal); M79.671 Pain in right foot; M79.672 Pain in left foot; I10 Essential (primary) hypertension
CPT/HCPCS: 99282; Z7502; Z7610

== ENCOUNTER 2023-10-29 19:10 | Emergency (ER) | payer OTHER | END 2023-10-29 22:29 | disposition left against medical advice (07) | LOC: EMS 19:12 | DX: M79.673 Pain in unspecified foot (principal); Z53.21 Procedure and treatment not carried out due to patient leaving prior to being seen by health care provider ==

== ENCOUNTER 2023-10-31 18:40 | Emergency (ER) | payer OTHER ==
[~2023-10-31] VITALS: Ht 177.8 cm; Wt 80.0 kg
[2023-10-31 18:44] VITALS: BP 145/82; PULSE 78; RESP 18; TEMP 98.5; O2SAT 99
== END 2023-10-31 22:00 | disposition left against medical advice (07) ==
LOC: EMS 18:40
DX: M79.671 Pain in right foot (principal); M79.672 Pain in left foot; Z53.21 Procedure and treatment not carried out due to patient leaving prior to being seen by health care provider

== ENCOUNTER 2023-11-02 22:01 | Emergency (ER) | payer OTHER ==
[~2023-11-02] VITALS: Ht 175.3 cm; Wt 81.8 kg
[2023-11-02 22:02] VITALS: BP 156/94; PULSE 98; RESP 18; TEMP 98.9; O2SAT 98
[2023-11-03] MEDS: ACETAMINOPHEN 500 MG TABLET PO ONE (00:32)
== END 2023-11-03 04:57 | disposition home or self-care (01) ==
LOC: EMS 22:01
DX: S90.812A Abrasion, left foot, initial encounter (principal); S90.811A Abrasion, right foot, initial encounter; I10 Essential (primary) hypertension; F20.9 Schizophrenia, unspecified; X58.XXXA Exposure to other specified factors, initial encounter; Y93.89 Activity, other specified; Y92.89 Other specified places as the place of occurrence of the external cause; Y99.8 Other external cause status
CPT/HCPCS: 99282; Z7502; Z7610

== ENCOUNTER 2023-11-03 20:01 | Emergency (ER) | payer OTHER ==
[~2023-11-03] VITALS: Ht 180.3 cm; Wt 95.0 kg
[2023-11-03 20:14] VITALS: BP 149/99; PULSE 88; RESP 18; TEMP 98.4; O2SAT 98
== END 2023-11-03 22:53 | disposition left against medical advice (07) ==
LOC: EMS 20:01
DX: M79.672 Pain in left foot (principal); M79.671 Pain in right foot; Z53.21 Procedure and treatment not carried out due to patient leaving prior to being seen by health care provider

== ENCOUNTER 2023-11-05 01:47 | Emergency (ER) | payer OTHER ==
[~2023-11-05] VITALS: Ht 180.3 cm; Wt 90.0 kg
[2023-11-05 02:13] VITALS: BP 153/99; PULSE 79; RESP 18; TEMP 98.6; O2SAT 94
[2023-11-05] MEDS: ACETAMINOPHEN 500 MG TABLET PO ONE (04:14)
== END 2023-11-05 04:32 | disposition home or self-care (01) ==
LOC: EMS 01:47
DX: G89.29 Other chronic pain (principal); M79.671 Pain in right foot; M79.672 Pain in left foot; I10 Essential (primary) hypertension
CPT/HCPCS: 99282; Z7502; Z7610

== ENCOUNTER 2023-11-07 21:40 | Emergency (ER) | payer OTHER ==
[~2023-11-07] VITALS: Ht 182.9 cm; Wt 97.7 kg
[2023-11-07 21:46] VITALS: BP 148/72; PULSE 81; RESP 16; TEMP 98.3; O2SAT 100
== END 2023-11-07 23:44 | disposition left against medical advice (07) ==
LOC: EMS 21:40
DX: R21 Rash and other nonspecific skin eruption (principal); Z53.21 Procedure and treatment not carried out due to patient leaving prior to being seen by health care provider

== ENCOUNTER 2023-11-08 19:06 | Emergency (ER) | payer OTHER ==
[~2023-11-08] VITALS: Ht 180.3 cm; Wt 95.0 kg
[2023-11-08 19:22] VITALS: BP 150/100; PULSE 88; RESP 18; TEMP 98.2; O2SAT 100
== END 2023-11-08 23:09 | disposition left against medical advice (07) ==
LOC: EMS 19:06
DX: G89.29 Other chronic pain (principal); M79.672 Pain in left foot; M79.671 Pain in right foot; Z53.21 Procedure and treatment not carried out due to patient leaving prior to being seen by health care provider

== ENCOUNTER → 2023-11-09 | Emergency (ER) | payer OTHER ==
[~2023-11-09] VITALS: Ht 185.4 cm; Wt 84.1 kg
[2023-11-09 20:28] VITALS: BP 149/98; PULSE 98; RESP 18; TEMP 98; O2SAT 100
[2023-11-09] MEDS: ACETAMINOPHEN 650 MG/20.3 ML SOLUTION UDCUP PO ONE (20:41)
== END | disposition home or self-care (01) ==
LOC: EMS 20:24
DX: G89.29 Other chronic pain (principal); M79.671 Pain in right foot; M79.672 Pain in left foot; I10 Essential (primary) hypertension
CPT/HCPCS: 99282; Z7502; Z7610

== ENCOUNTER 2023-11-10 21:04 | Emergency (ER) | payer OTHER ==
[~2023-11-10] VITALS: Ht 185.4 cm; Wt 84.1 kg
[2023-11-10 21:07] VITALS: BP 162/97; PULSE 92; RESP 18; TEMP 98.2; O2SAT 98
[2023-11-10] MEDS: ACETAMINOPHEN 500 MG TABLET PO ONE (21:33)
== END 2023-11-10 21:37 | disposition home or self-care (01) ==
LOC: EMS 21:04
DX: M79.672 Pain in left foot (principal); M79.671 Pain in right foot; F20.9 Schizophrenia, unspecified; I10 Essential (primary) hypertension; Z59.00 Homelessness unspecified; Z76.5 Malingerer [conscious simulation]
CPT/HCPCS: 99282; Z7502; Z7610

== ENCOUNTER 2023-11-12 19:37 | Emergency (ER) | payer OTHER ==
[~2023-11-12] VITALS: Ht 185.4 cm; Wt 84.1 kg
[2023-11-12 19:43] VITALS: BP 148/90; PULSE 98; RESP 18; TEMP 98.7; O2SAT 100
[2023-11-12] MEDS ORDERED: ACETAMINOPHEN 500 MG TABLET PO ONE (20:00)
== END 2023-11-12 20:19 | disposition home or self-care (01) ==
LOC: EMS 19:37
DX: F25.9 Schizoaffective disorder, unspecified (principal); M79.671 Pain in right foot; M79.672 Pain in left foot; I10 Essential (primary) hypertension; Z76.5 Malingerer [conscious simulation]; Z59.00 Homelessness unspecified
CPT/HCPCS: 99281; Z7502; Z7610

== ENCOUNTER → 2023-11-16 | Emergency (ER) | payer OTHER ==
[~2023-11-16] VITALS: Ht 177.8 cm; Wt 84.1 kg
[2023-11-16 20:58] VITALS: BP 138/75; PULSE 75; RESP 18; TEMP 98.2; O2SAT 98
== END | disposition still patient (30) ==
LOC: EMS 20:49
DX: M79.671 Pain in right foot (principal); M79.672 Pain in left foot; Z76.5 Malingerer [conscious simulation]; I10 Essential (primary) hypertension; F20.9 Schizophrenia, unspecified
CPT/HCPCS: 99281; Z7502

== ENCOUNTER → 2023-11-24 | Emergency (ER) | payer OTHER ==
[~2023-11-24] VITALS: Ht 177.8 cm; Wt 85.0 kg
[2023-11-24 23:54] VITALS: BP 138/80; PULSE 78; RESP 16; TEMP 98.2; O2SAT 100
== END | disposition still patient (30) ==
LOC: EMS 23:51
DX: Z53.21 Procedure and treatment not carried out due to patient leaving prior to being seen by health care provider (principal)

== ENCOUNTER 2023-12-09 19:38 | Emergency (ER) | payer OTHER ==
[~2023-12-09] VITALS: Ht 172.7 cm; Wt 85.0 kg
[2023-12-09 19:43] VITALS: TEMP 98
[2023-12-09 19:59] VITALS: BP 142/80; PULSE 84; RESP 18; O2SAT 96
[2023-12-09] MEDS: ACETAMINOPHEN 500 MG TABLET PO ONE (20:18)
== END 2023-12-09 20:30 | disposition home or self-care (01) ==
LOC: EMS 19:38
DX: M79.671 Pain in right foot (principal); M79.672 Pain in left foot; I10 Essential (primary) hypertension; F20.9 Schizophrenia, unspecified; Z59.00 Homelessness unspecified; Z76.5 Malingerer [conscious simulation]
CPT/HCPCS: 99282; Z7502; Z7610

== ENCOUNTER 2023-12-11 18:11 | Emergency (ER) | payer OTHER ==
[~2023-12-11] VITALS: Ht 180.3 cm; Wt 90.9 kg
[2023-12-11 18:51] VITALS: BP 165/86; PULSE 96; RESP 18; TEMP 99.4; O2SAT 98
== END 2023-12-11 22:55 | disposition home or self-care (01) ==
LOC: EMS 18:23
DX: M79.672 Pain in left foot (principal); M79.671 Pain in right foot; I10 Essential (primary) hypertension; F20.9 Schizophrenia, unspecified; Z76.5 Malingerer [conscious simulation]
CPT/HCPCS: 99281; Z7502

== ENCOUNTER 2023-12-12 17:36 | Emergency (ER) | payer OTHER ==
[~2023-12-12] VITALS: Ht 182.9 cm; Wt 84.1 kg
[2023-12-12 17:47] VITALS: BP 138/65; PULSE 91; RESP 18; TEMP 99.9; O2SAT 100
== END 2023-12-12 22:30 | disposition left against medical advice (07) ==
LOC: EMS 17:36
DX: M79.671 Pain in right foot (principal); M79.672 Pain in left foot; Z53.21 Procedure and treatment not carried out due to patient leaving prior to being seen by health care provider

== ENCOUNTER 2023-12-13 18:17 | Emergency (ER) | payer OTHER ==
[~2023-12-13] VITALS: Ht 177.8 cm; Wt 90.9 kg
[2023-12-13 18:34] VITALS: BP 153/98; PULSE 85; RESP 18; TEMP 97.1; O2SAT 98
== END 2023-12-13 21:54 | disposition home or self-care (01) ==
LOC: EMS 18:17
DX: M79.671 Pain in right foot (principal); M79.672 Pain in left foot; Z76.5 Malingerer [conscious simulation]; I10 Essential (primary) hypertension; F20.9 Schizophrenia, unspecified
CPT/HCPCS: 99281; Z7502

== ENCOUNTER 2023-12-14 19:39 | Emergency (ER) | payer OTHER ==
[~2023-12-14] VITALS: Ht 182.9 cm; Wt 88.6 kg
[2023-12-14 19:42] VITALS: BP 156/98; PULSE 96; RESP 18; TEMP 98.9; O2SAT 98
[2023-12-14] MEDS: ACETAMINOPHEN 325 MG TABLET PO ONE (21:46)
== END 2023-12-14 22:03 | disposition home or self-care (01) ==
LOC: EMS 19:39
DX: S90.812A Abrasion, left foot, initial encounter (principal); S90.811A Abrasion, right foot, initial encounter; F20.9 Schizophrenia, unspecified; G89.29 Other chronic pain; I10 Essential (primary) hypertension; Z59.00 Homelessness unspecified; X58.XXXA Exposure to other specified factors, initial encounter; Y93.89 Activity, other specified; Y92.89 Other specified places as the place of occurrence of the external cause; Y99.8 Other external cause status
CPT/HCPCS: 99282; Z7502; Z7610

== ENCOUNTER 2023-12-18 18:44 | Emergency (ER) | payer OTHER ==
[~2023-12-18] VITALS: Ht 177.8 cm; Wt 86.0 kg
[2023-12-18 19:06] VITALS: BP 145/89; PULSE 74; RESP 18; TEMP 97.6; O2SAT 99
[2023-12-18] MEDS: ACETAMINOPHEN 325 MG TABLET PO ONE (20:32)
== END 2023-12-18 20:41 | disposition home or self-care (01) ==
LOC: EMS 18:44
DX: M79.671 Pain in right foot (principal); M79.672 Pain in left foot; I10 Essential (primary) hypertension; F20.9 Schizophrenia, unspecified; Z59.00 Homelessness unspecified
CPT/HCPCS: 99282; Z7502; Z7610

== ENCOUNTER 2023-12-29 20:01 | Emergency (ER) | payer OTHER ==
[~2023-12-29] VITALS: Ht 182.9 cm; Wt 0.8 kg
[2023-12-29 20:07] VITALS: BP 156/90; PULSE 94; RESP 18; TEMP 98.9; O2SAT 98
== END 2023-12-29 20:52 | disposition home or self-care (01) ==
LOC: EMS 20:01
DX: M79.671 Pain in right foot (principal); M79.672 Pain in left foot; I10 Essential (primary) hypertension; F20.9 Schizophrenia, unspecified; Z76.5 Malingerer [conscious simulation]; Z59.00 Homelessness unspecified
CPT/HCPCS: 99281; Z7502

== ENCOUNTER 2024-01-03 18:50 | Emergency (ER) | payer OTHER ==
[~2024-01-03] VITALS: Ht 190.5 cm; Wt 100.5 kg
[2024-01-03 19:00] VITALS: BP 131/77; PULSE 82; RESP 20; TEMP 99.4; O2SAT 97
== END 2024-01-04 06:34 | disposition admitted as inpatient to this hospital (09) ==
LOC: EMS 18:50
DX: G89.29 Other chronic pain (principal); M79.672 Pain in left foot; M79.671 Pain in right foot; I10 Essential (primary) hypertension; F20.9 Schizophrenia, unspecified
CPT/HCPCS: 99285; Z7502

== ENCOUNTER 2024-04-18 23:07 | Emergency (ER) | payer OTHER ==
[~2024-04-18] VITALS: Ht 180.3 cm; Wt 87.0 kg
[2024-04-18 23:15] VITALS: BP 149/100; PULSE 89; RESP 18; TEMP 98.2; O2SAT 100
== END 2024-04-19 05:00 | disposition home or self-care (01) ==
LOC: EMS 23:09
DX: G89.29 Other chronic pain (principal); M79.671 Pain in right foot; M79.672 Pain in left foot; I10 Essential (primary) hypertension
CPT/HCPCS: 99281; Z7502

== ENCOUNTER 2024-04-21 19:40 | Emergency (ER) | payer OTHER ==
[~2024-04-21] VITALS: Ht 180.3 cm; Wt 87.0 kg
[2024-04-21 19:51] VITALS: BP 139/93; PULSE 90; RESP 18; TEMP 98.3; O2SAT 98
[2024-04-21] MEDS: ACETAMINOPHEN 500 MG TABLET PO ONE (20:34)
== END 2024-04-21 20:40 | disposition home or self-care (01) ==
LOC: EMS 19:40
DX: M79.671 Pain in right foot (principal); M79.672 Pain in left foot; I10 Essential (primary) hypertension; F20.9 Schizophrenia, unspecified; Z76.5 Malingerer [conscious simulation]; Z59.00 Homelessness unspecified
CPT/HCPCS: 99282; Z7502; Z7610

== ENCOUNTER 2024-04-22 18:30 | Emergency (ER) | payer OTHER ==
[2024-04-22] MEDS: ACETAMINOPHEN 500 MG TABLET PO ONE (20:18)
== END 2024-04-22 20:24 | disposition home or self-care (01) ==
LOC: EMS 18:33
DX: M79.671 Pain in right foot (principal); M79.672 Pain in left foot; Z76.5 Malingerer [conscious simulation]; Z59.00 Homelessness unspecified; I10 Essential (primary) hypertension; F20.9 Schizophrenia, unspecified
CPT/HCPCS: 99282; Z7502; Z7610

== ENCOUNTER 2024-04-23 19:54 | Emergency (ER) | payer OTHER ==
[~2024-04-23] VITALS: Ht 185.4 cm; Wt 85.0 kg
[2024-04-23 20:24] VITALS: BP 146/87; PULSE 84; RESP 16; TEMP 98.1; O2SAT 96
[2024-04-23] MEDS: IBUPROFEN 600 MG TABLET PO ONE (23:09)
== END 2024-04-23 23:21 | disposition home or self-care (01) ==
LOC: EMS 19:54
DX: G89.29 Other chronic pain (principal); M79.671 Pain in right foot; M79.672 Pain in left foot; I10 Essential (primary) hypertension; F20.9 Schizophrenia, unspecified
CPT/HCPCS: 99282; Z7502; Z7610

== ENCOUNTER → 2024-04-23 | Emergency (ER) | payer OTHER ==
[~2024-04-23] VITALS: Ht 185.4 cm; Wt 84.0 kg
[2024-04-23 11:37] VITALS: BP 146/87; PULSE 84; RESP 18; TEMP 97.3; O2SAT 96
== END | disposition left against medical advice (07) ==
LOC: EMS 11:12
DX: M79.671 Pain in right foot (principal); M79.672 Pain in left foot; Z53.21 Procedure and treatment not carried out due to patient leaving prior to being seen by health care provider

== ENCOUNTER 2024-04-24 07:28 | Emergency (ER) | payer OTHER ==
[~2024-04-24] VITALS: Ht 185.4 cm; Wt 85.0 kg
[2024-04-24 07:40] VITALS: BP 147/92; PULSE 92; RESP 18; TEMP 97.9; O2SAT 98
== END 2024-04-24 09:57 | disposition home or self-care (01) ==
LOC: EMS 07:48
DX: M79.672 Pain in left foot (principal); M79.671 Pain in right foot; I10 Essential (primary) hypertension; F20.9 Schizophrenia, unspecified; Z76.5 Malingerer [conscious simulation]
CPT/HCPCS: 99281; Z7502

== ENCOUNTER 2024-04-24 19:39 | Emergency (ER) | payer OTHER ==
[~2024-04-24] VITALS: Ht 177.8 cm; Wt 81.8 kg
[2024-04-24 19:42] VITALS: BP 142/90; PULSE 88; RESP 18; TEMP 98.1; O2SAT 100
== END 2024-04-25 04:51 | disposition home or self-care (01) ==
LOC: EMS 19:40
DX: G89.29 Other chronic pain (principal); M79.672 Pain in left foot; M79.671 Pain in right foot; I10 Essential (primary) hypertension; F20.9 Schizophrenia, unspecified
CPT/HCPCS: 99282; Z7502

== ENCOUNTER 2024-04-25 20:10 | Emergency (ER) | payer OTHER ==
[~2024-04-25] VITALS: Ht 177.8 cm; Wt 81.8 kg
[2024-04-25 20:14] VITALS: BP 146/88; PULSE 88; RESP 18; TEMP 97.6; O2SAT 98
[2024-04-25] MEDS: ACETAMINOPHEN 500 MG TABLET PO ONE (21:22)
[2024-04-25] MEDS: IBUPROFEN 600 MG TABLET PO ONE (21:22)
== END 2024-04-25 21:32 | disposition home or self-care (01) ==
LOC: EMS 20:10
DX: G89.29 Other chronic pain (principal); M79.671 Pain in right foot; M79.672 Pain in left foot; I10 Essential (primary) hypertension; F20.9 Schizophrenia, unspecified
CPT/HCPCS: 99283

== ENCOUNTER 2024-04-26 20:09 | Emergency (ER) | payer OTHER ==
[~2024-04-26] VITALS: Ht 177.8 cm; Wt 81.0 kg
[2024-04-26 20:13] VITALS: BP 143/89; PULSE 76; RESP 18; TEMP 97.6; O2SAT 96
[2024-04-27] MEDS: ACETAMINOPHEN 325 MG TABLET PO ONE (03:24)
== END 2024-04-27 06:01 | disposition home or self-care (01) ==
LOC: EMS 20:10
DX: G89.29 Other chronic pain (principal); M79.671 Pain in right foot; M79.672 Pain in left foot; I10 Essential (primary) hypertension; F20.9 Schizophrenia, unspecified
CPT/HCPCS: 99282; Z7502; Z7610

== ENCOUNTER 2024-04-28 20:07 | Emergency (ER) | payer OTHER | END 2024-04-29 02:49 | disposition home or self-care (01) | LOC: EMS 20:08 | DX: G89.29 Other chronic pain (principal); M79.673 Pain in unspecified foot; F20.9 Schizophrenia, unspecified; I10 Essential (primary) hypertension | CPT/HCPCS: 99281; 99282; Z7502 ==

== ENCOUNTER 2024-04-29 21:17 | Emergency (ER) | payer OTHER ==
[~2024-04-29] VITALS: Ht 190.5 cm; Wt 100.5 kg
[2024-04-29 21:29] VITALS: BP 152/99; PULSE 87; RESP 20; TEMP 98.4; O2SAT 98
== END 2024-04-30 06:21 | disposition home or self-care (01) ==
LOC: EMS 21:21
DX: G89.29 Other chronic pain (principal); M79.673 Pain in unspecified foot; I10 Essential (primary) hypertension; F20.9 Schizophrenia, unspecified
CPT/HCPCS: 99282; Z7502

== ENCOUNTER 2024-04-30 21:00 | Emergency (ER) | payer OTHER ==
[~2024-04-30] VITALS: Ht 177.8 cm; Wt 60.0 kg
[2024-04-30 21:30] VITALS: BP 150/90; PULSE 88; RESP 18; O2SAT 100
[2024-04-30] MEDS: ACETAMINOPHEN 500 MG TABLET PO ONE (22:55)
== END 2024-04-30 23:00 | disposition home or self-care (01) ==
LOC: EMS 21:06
DX: G89.29 Other chronic pain (principal); M79.671 Pain in right foot; M79.672 Pain in left foot; I10 Essential (primary) hypertension; F20.9 Schizophrenia, unspecified
CPT/HCPCS: 99282; Z7502; Z7610

== ENCOUNTER 2024-05-01 20:48 | Emergency (ER) | payer OTHER ==
[~2024-05-01] VITALS: Ht 180.3 cm; Wt 89.0 kg
[2024-05-01 21:03] VITALS: BP 152/90; PULSE 88; RESP 18; TEMP 98.2; O2SAT 100
[2024-05-01] MEDS: ACETAMINOPHEN 500 MG TABLET PO ONE (23:06)
== END 2024-05-01 23:53 | disposition home or self-care (01) ==
LOC: EMS 20:50
DX: M79.672 Pain in left foot (principal); M79.671 Pain in right foot; Z53.21 Procedure and treatment not carried out due to patient leaving prior to being seen by health care provider
CPT/HCPCS: 99281; Z7502; Z7610

== ENCOUNTER 2024-05-03 04:41 | Emergency (ER) | payer OTHER ==
[~2024-05-03] VITALS: Ht 180.3 cm; Wt 89.0 kg
[2024-05-03 04:57] VITALS: BP 149/100; PULSE 88; RESP 18; TEMP 98; O2SAT 100
[2024-05-03] MEDS: ACETAMINOPHEN 325 MG TABLET PO ONE (05:25)
== END 2024-05-03 06:01 | disposition home or self-care (01) ==
LOC: EMS 04:41
DX: G89.29 Other chronic pain (principal); M79.673 Pain in unspecified foot; F20.9 Schizophrenia, unspecified; I10 Essential (primary) hypertension
CPT/HCPCS: 99282; Z7502; Z7610

== ENCOUNTER 2024-05-07 00:46 | Emergency (ER) | payer OTHER ==
[~2024-05-07] VITALS: Ht 180.3 cm; Wt 89.0 kg
[2024-05-07 00:56] VITALS: BP 146/92; PULSE 85; RESP 18; TEMP 98.2; O2SAT 100
[2024-05-07] MEDS: IBUPROFEN 600 MG TABLET PO ONE (01:37)
[2024-05-07] MEDS: ACETAMINOPHEN 500 MG TABLET PO ONE (01:37)
== END 2024-05-07 01:40 | disposition home or self-care (01) ==
LOC: EMS 00:46
DX: G89.29 Other chronic pain (principal); M79.671 Pain in right foot; M79.672 Pain in left foot; I10 Essential (primary) hypertension; F20.9 Schizophrenia, unspecified
CPT/HCPCS: 99283

== ENCOUNTER 2024-05-07 21:21 | Emergency (ER) | payer OTHER ==
[~2024-05-07] VITALS: Ht 172.7 cm; Wt 85.0 kg
[2024-05-07 21:38] VITALS: TEMP 98.2
[2024-05-07 21:55] VITALS: BP 142/75; PULSE 76; RESP 18; O2SAT 100
[2024-05-07] MEDS: IBUPROFEN 600 MG TABLET PO ONE (22:10)
== END 2024-05-07 22:23 | disposition home or self-care (01) ==
LOC: EMS 21:21
DX: G89.29 Other chronic pain (principal); M79.671 Pain in right foot; M79.672 Pain in left foot; I10 Essential (primary) hypertension; F20.9 Schizophrenia, unspecified
CPT/HCPCS: 99282; Z7502; Z7610

== ENCOUNTER 2024-05-08 22:42 | Emergency (ER) | payer OTHER ==
[~2024-05-08] VITALS: Ht 177.8 cm; Wt 81.8 kg
[2024-05-08 22:54] VITALS: BP 144/98; PULSE 87; RESP 18; TEMP 97.4; O2SAT 97
[2024-05-09] MEDS: ACETAMINOPHEN 500 MG TABLET PO ONE (01:01)
== END 2024-05-09 01:02 | disposition home or self-care (01) ==
LOC: EMS 22:45
DX: G89.29 Other chronic pain (principal); M79.671 Pain in right foot; M79.672 Pain in left foot; I10 Essential (primary) hypertension; F20.9 Schizophrenia, unspecified
CPT/HCPCS: 99282; Z7502; Z7610

== ENCOUNTER 2024-05-09 18:54 | Emergency (ER) | payer OTHER ==
[~2024-05-09] VITALS: Ht 180.3 cm; Wt 90.0 kg
[2024-05-09 19:13] VITALS: BP 149/100; PULSE 72; RESP 18; TEMP 98; O2SAT 100
[2024-05-09] MEDS: ACETAMINOPHEN 325 MG TABLET PO ONE (19:42)
== END 2024-05-09 19:47 | disposition home or self-care (01) ==
LOC: EMS 18:54
DX: G89.29 Other chronic pain (principal); M79.671 Pain in right foot; M79.672 Pain in left foot; I10 Essential (primary) hypertension; F20.9 Schizophrenia, unspecified
CPT/HCPCS: 99282; Z7502; Z7610

== ENCOUNTER 2024-05-10 22:29 | Emergency (ER) | payer OTHER ==
[~2024-05-10] VITALS: Ht 180.3 cm; Wt 81.8 kg
[2024-05-10 22:34] VITALS: BP 154/94; PULSE 84; RESP 18; TEMP 98.3; O2SAT 99
[2024-05-11] MEDS: ACETAMINOPHEN 500 MG TABLET PO ONE (00:23)
== END 2024-05-11 00:24 | disposition home or self-care (01) ==
LOC: EMS 22:29
DX: M79.671 Pain in right foot (principal); M79.672 Pain in left foot; I10 Essential (primary) hypertension; F20.9 Schizophrenia, unspecified; Z76.5 Malingerer [conscious simulation]; Z59.00 Homelessness unspecified
CPT/HCPCS: 99282; Z7502; Z7610

== ENCOUNTER 2024-05-11 17:44 | Emergency (ER) | payer OTHER ==
[~2024-05-11] VITALS: Ht 177.8 cm; Wt 110.0 kg
[2024-05-11 18:07] VITALS: BP 152/101; PULSE 85; RESP 18; TEMP 98; O2SAT 97
[2024-05-11] MEDS: ACETAMINOPHEN 325 MG TABLET PO ONE (19:35)
== END 2024-05-11 19:41 | disposition home or self-care (01) ==
LOC: EMS 17:46
DX: G89.29 Other chronic pain (principal); M79.671 Pain in right foot; M79.672 Pain in left foot; I10 Essential (primary) hypertension; F20.9 Schizophrenia, unspecified
CPT/HCPCS: 99282; Z7502; Z7610

== ENCOUNTER 2024-05-13 19:07 | Emergency (ER) | payer OTHER ==
[~2024-05-13] VITALS: Ht 190.5 cm; Wt 110.0 kg
[2024-05-13 19:15] VITALS: BP 153/82; PULSE 97; RESP 20; TEMP 98; O2SAT 99
[2024-05-13] MEDS: IBUPROFEN 600 MG TABLET PO ONE (20:35)
== END 2024-05-13 20:37 | disposition home or self-care (01) ==
LOC: EMS 19:08
DX: G89.29 Other chronic pain (principal); M79.671 Pain in right foot; M79.672 Pain in left foot; I10 Essential (primary) hypertension; F20.9 Schizophrenia, unspecified
CPT/HCPCS: 99282; Z7502; Z7610

== ENCOUNTER 2024-05-15 20:24 | Emergency (ER) | payer OTHER ==
[~2024-05-15] VITALS: Ht 172.7 cm; Wt 81.8 kg
[2024-05-15 20:31] VITALS: BP 138/79; PULSE 85; RESP 16; TEMP 98.4; O2SAT 98
[2024-05-16] MEDS: ACETAMINOPHEN 500 MG TABLET PO ONE (04:43)
== END 2024-05-16 04:52 | disposition home or self-care (01) ==
LOC: EMS 20:25
DX: G89.29 Other chronic pain (principal); M79.671 Pain in right foot; M79.672 Pain in left foot; I10 Essential (primary) hypertension; F20.9 Schizophrenia, unspecified
CPT/HCPCS: 99282; Z7502; Z7610

== ENCOUNTER 2024-05-16 19:57 | Emergency (ER) | payer OTHER ==
[~2024-05-16] VITALS: Ht 180.3 cm; Wt 89.0 kg
[2024-05-16 19:59] VITALS: BP 151/99; PULSE 76; RESP 18; TEMP 98; O2SAT 100
== END 2024-05-16 23:52 | disposition home or self-care (01) ==
LOC: EMS 19:57
DX: G89.29 Other chronic pain (principal); M79.671 Pain in right foot; M79.672 Pain in left foot; I10 Essential (primary) hypertension; F20.9 Schizophrenia, unspecified
CPT/HCPCS: 99281; Z7502

== ENCOUNTER 2024-05-17 20:35 | Emergency (ER) | payer OTHER ==
[~2024-05-17] VITALS: Ht 180.3 cm; Wt 92.0 kg
[2024-05-17 20:41] VITALS: BP 150/99; PULSE 78; RESP 18; TEMP 98; O2SAT 100
== END 2024-05-18 00:01 | disposition left against medical advice (07) ==
LOC: EMS 20:35
DX: M79.672 Pain in left foot (principal); M79.671 Pain in right foot; Z53.21 Procedure and treatment not carried out due to patient leaving prior to being seen by health care provider

== ENCOUNTER 2024-05-18 23:14 | Emergency (ER) | payer OTHER ==
[~2024-05-18] VITALS: Ht 180.3 cm; Wt 95.0 kg
[2024-05-18 23:18] VITALS: BP 149/99; PULSE 88; RESP 18; TEMP 98.5; O2SAT 99
== END 2024-05-19 03:07 | disposition home or self-care (01) ==
LOC: EMS 23:14
DX: G89.29 Other chronic pain (principal); M79.671 Pain in right foot; M79.672 Pain in left foot; I10 Essential (primary) hypertension; F20.9 Schizophrenia, unspecified
CPT/HCPCS: 99281; Z7502

== ENCOUNTER 2024-05-19 20:56 | Emergency (ER) | payer OTHER ==
[~2024-05-19] VITALS: Ht 180.3 cm; Wt 95.0 kg
[2024-05-19 21:03] VITALS: BP 157/85; PULSE 87; RESP 18; TEMP 98.6; O2SAT 100
[2024-05-19] MEDS: IBUPROFEN 600 MG TABLET PO ONE (22:25)
== END 2024-05-19 22:27 | disposition home or self-care (01) ==
LOC: EMS 20:56
DX: G89.29 Other chronic pain (principal); M79.671 Pain in right foot; M79.672 Pain in left foot; I10 Essential (primary) hypertension; F20.9 Schizophrenia, unspecified; Z59.01 Sheltered homelessness
CPT/HCPCS: 99282; Z7502; Z7610

== ENCOUNTER 2024-05-21 00:48 | Emergency (ER) | payer OTHER ==
[~2024-05-21] VITALS: Ht 188 cm; Wt 90.9 kg
[2024-05-21 00:55] VITALS: BP 161/91; PULSE 84; RESP 20; TEMP 98.4; O2SAT 100
[2024-05-21] MEDS: ACETAMINOPHEN 325 MG TABLET PO ONE (04:52)
== END 2024-05-21 04:57 | disposition home or self-care (01) ==
LOC: EMS 00:48
DX: G89.29 Other chronic pain (principal); M79.671 Pain in right foot; M79.672 Pain in left foot; I10 Essential (primary) hypertension; F20.9 Schizophrenia, unspecified
CPT/HCPCS: 99282; Z7502; Z7610

== ENCOUNTER 2024-05-21 19:29 | Emergency (ER) | payer OTHER ==
[2024-05-22] MEDS: ACETAMINOPHEN 325 MG TABLET PO ONE (01:38)
== END 2024-05-22 01:39 | disposition home or self-care (01) ==
LOC: EMS 19:29
DX: M79.673 Pain in unspecified foot (principal); G89.29 Other chronic pain; I10 Essential (primary) hypertension; F20.9 Schizophrenia, unspecified
CPT/HCPCS: 99282; Z7502; Z7610

== ENCOUNTER 2024-05-22 20:19 | Emergency (ER) | payer OTHER ==
[~2024-05-22] VITALS: Ht 185.4 cm; Wt 90.0 kg
[2024-05-22 21:37] VITALS: BP 149/90; PULSE 88; RESP 18; TEMP 97.9; O2SAT 100
[2024-05-23] MEDS: ACETAMINOPHEN 500 MG TABLET PO ONE (00:13)
== END 2024-05-23 00:15 | disposition home or self-care (01) ==
LOC: EMS 20:19
DX: M79.672 Pain in left foot (principal); M79.671 Pain in right foot; I10 Essential (primary) hypertension; G89.29 Other chronic pain; F20.9 Schizophrenia, unspecified; Z72.89 Other problems related to lifestyle
CPT/HCPCS: 99282; Z7502

== ENCOUNTER 2024-05-23 20:12 | Emergency (ER) | payer OTHER ==
[~2024-05-23] VITALS: Ht 180.3 cm; Wt 95.0 kg
[2024-05-23 20:36] VITALS: BP 149/100; PULSE 88; RESP 18; TEMP 98.1; O2SAT 100
[2024-05-24] MEDS: ACETAMINOPHEN 500 MG TABLET PO ONE (02:18)
== END 2024-05-24 02:25 | disposition home or self-care (01) ==
LOC: EMS 20:16
DX: G89.29 Other chronic pain (principal); M79.671 Pain in right foot; M79.672 Pain in left foot; I10 Essential (primary) hypertension; F20.9 Schizophrenia, unspecified
CPT/HCPCS: 99282; Z7502; Z7610

== ENCOUNTER 2024-05-24 16:48 | Emergency (ER) | payer OTHER ==
[~2024-05-24] VITALS: Ht 177.8 cm; Wt 96.0 kg
[2024-05-24 16:50] VITALS: BP 155/90; PULSE 84; RESP 18; TEMP 98.3; O2SAT 97
[2024-05-24] MEDS: ACETAMINOPHEN 500 MG TABLET PO ONE (19:42)
== END 2024-05-24 19:47 | disposition home or self-care (01) ==
LOC: EMS 16:48
DX: Z76.5 Malingerer [conscious simulation] (principal); I10 Essential (primary) hypertension; F20.9 Schizophrenia, unspecified; Z59.00 Homelessness unspecified
CPT/HCPCS: 99282; Z7502; Z7610

== ENCOUNTER 2024-05-28 22:33 | Emergency (ER) | payer OTHER ==
[~2024-05-28] VITALS: Ht 188 cm; Wt 90.9 kg
[2024-05-28 22:35] VITALS: BP 170/88; PULSE 80; RESP 20; TEMP 98.6; O2SAT 98
== END 2024-05-29 00:04 | disposition left against medical advice (07) ==
LOC: EMS 22:35
DX: M79.671 Pain in right foot (principal); M79.672 Pain in left foot; Z53.21 Procedure and treatment not carried out due to patient leaving prior to being seen by health care provider

== ENCOUNTER → 2024-06-01 | Emergency (ER) | payer OTHER ==
[~2024-06-01] VITALS: Ht 180.3 cm; Wt 92.0 kg
[2024-06-01 19:42] VITALS: BP 149/89; PULSE 92; RESP 18; TEMP 97.9; O2SAT 98
[2024-06-01] MEDS: ACETAMINOPHEN 500 MG TABLET PO ONE (20:29)
== END | disposition home or self-care (01) ==
LOC: EMS 19:51
DX: G89.29 Other chronic pain (principal); M79.673 Pain in unspecified foot; I10 Essential (primary) hypertension; F20.9 Schizophrenia, unspecified
CPT/HCPCS: 99282; Z7502; Z7610

== ENCOUNTER 2024-06-04 19:42 | Emergency (ER) | payer OTHER ==
[~2024-06-04] VITALS: Ht 185.4 cm; Wt 84.0 kg
[2024-06-05 02:41] VITALS: BP 149/86; PULSE 76; RESP 18; TEMP 98.2; O2SAT 100
== END 2024-06-05 05:42 | disposition home or self-care (01) ==
LOC: EMS 19:42
DX: M79.671 Pain in right foot (principal); M79.672 Pain in left foot; I10 Essential (primary) hypertension; F20.9 Schizophrenia, unspecified
CPT/HCPCS: 99282; Z7502

== ENCOUNTER 2024-06-05 20:43 | Emergency (ER) | payer OTHER ==
[~2024-06-05] VITALS: Ht 175.3 cm; Wt 84.0 kg
[2024-06-05 20:47] VITALS: BP 152/88; PULSE 78; RESP 18; TEMP 98; O2SAT 100
== END 2024-06-06 04:23 | disposition home or self-care (01) ==
LOC: EMS 20:43
DX: M79.673 Pain in unspecified foot (principal); Z53.21 Procedure and treatment not carried out due to patient leaving prior to being seen by health care provider
CPT/HCPCS: 99281; Z7502

== ENCOUNTER 2024-06-07 14:05 | Emergency (ER) | payer OTHER ==
[~2024-06-07] VITALS: Ht 175.3 cm; Wt 84.0 kg
[2024-06-07 14:18] VITALS: BP 141/88; PULSE 69; RESP 18; TEMP 98.5; O2SAT 98
== END 2024-06-07 16:11 | disposition left against medical advice (07) ==
LOC: EMS 14:05
DX: M79.671 Pain in right foot (principal); M79.672 Pain in left foot; Z53.21 Procedure and treatment not carried out due to patient leaving prior to being seen by health care provider

== ENCOUNTER 2024-06-09 19:36 | Emergency (ER) | payer OTHER ==
[~2024-06-09] VITALS: Ht 180.3 cm; Wt 100.5 kg
[2024-06-09 19:44] VITALS: BP 130/76; PULSE 92; RESP 18; TEMP 98.8; O2SAT 99
== END 2024-06-10 04:50 | disposition home or self-care (01) ==
LOC: EMS 19:36
DX: M79.673 Pain in unspecified foot (principal); Z76.5 Malingerer [conscious simulation]; I10 Essential (primary) hypertension; F20.9 Schizophrenia, unspecified; Z59.00 Homelessness unspecified
CPT/HCPCS: 99281; Z7502

== ENCOUNTER 2024-06-10 19:40 | Emergency (ER) | payer OTHER ==
[~2024-06-10] VITALS: Ht 177.8 cm; Wt 100.0 kg
[2024-06-10 19:45] VITALS: BP 142/89; PULSE 88; RESP 18; TEMP 97.8; O2SAT 100
[2024-06-10] MEDS: IBUPROFEN 400 MG TABLET PO ONE (21:43)
== END 2024-06-10 21:48 | disposition home or self-care (01) ==
LOC: EMS 19:40
DX: G89.29 Other chronic pain (principal); M79.671 Pain in right foot; M79.672 Pain in left foot; I10 Essential (primary) hypertension; F20.9 Schizophrenia, unspecified
CPT/HCPCS: 99282; Z7502; Z7610

== ENCOUNTER 2024-06-11 23:04 | Emergency (ER) | payer OTHER ==
[~2024-06-11] VITALS: Ht 177.8 cm; Wt 100.0 kg
[2024-06-11 23:06] VITALS: BP 145/90; PULSE 86; TEMP 98.7; O2SAT 100
[2024-06-12 05:25] VITALS: RESP 16
== END 2024-06-12 05:22 | disposition home or self-care (01) ==
LOC: EMS 23:06
DX: G89.29 Other chronic pain (principal); M79.671 Pain in right foot; M79.672 Pain in left foot; I10 Essential (primary) hypertension; F20.9 Schizophrenia, unspecified
CPT/HCPCS: 99282; Z7502

== ENCOUNTER 2024-06-13 16:39 | Emergency (ER) | payer OTHER ==
[~2024-06-13] VITALS: Ht 177.8 cm; Wt 68.2 kg
[2024-06-13 16:41] VITALS: BP 143/90; PULSE 76; RESP 18; TEMP 98; O2SAT 97
[2024-06-13] MEDS: ACETAMINOPHEN 500 MG TABLET PO ONE (16:58)
== END 2024-06-13 17:16 | disposition home or self-care (01) ==
LOC: EMS 16:39
DX: G89.29 Other chronic pain (principal); M79.671 Pain in right foot; M79.672 Pain in left foot; I10 Essential (primary) hypertension; F20.9 Schizophrenia, unspecified
CPT/HCPCS: 99282; Z7502; Z7610

== ENCOUNTER 2024-06-14 21:38 | Emergency (ER) | payer OTHER ==
[~2024-06-14] VITALS: Ht 180.3 cm; Wt 95.0 kg
[2024-06-14 21:40] VITALS: BP 149/99; PULSE 88; RESP 18; TEMP 98.1; O2SAT 98
== END 2024-06-14 22:44 | disposition home or self-care (01) ==
LOC: EMS 21:39
DX: M79.671 Pain in right foot (principal); M79.672 Pain in left foot; Z76.5 Malingerer [conscious simulation]; I10 Essential (primary) hypertension; F20.9 Schizophrenia, unspecified
CPT/HCPCS: 99281; Z7502

== ENCOUNTER 2024-06-15 14:21 | Emergency (ER) | payer OTHER ==
[~2024-06-15] VITALS: Ht 185.4 cm; Wt 90.9 kg
[2024-06-15 15:03] VITALS: BP 133/84; PULSE 71; RESP 18; TEMP 98.2; O2SAT 100
== END 2024-06-15 23:38 | disposition home or self-care (01) ==
LOC: EMS 14:21
DX: M79.671 Pain in right foot (principal); M79.672 Pain in left foot; Z76.5 Malingerer [conscious simulation]; I10 Essential (primary) hypertension; F25.9 Schizoaffective disorder, unspecified; Z59.00 Homelessness unspecified
CPT/HCPCS: 99281; Z7502

== ENCOUNTER 2024-06-16 17:54 | Emergency (ER) | payer OTHER ==
[~2024-06-16] VITALS: Ht 185.4 cm; Wt 81.0 kg
[2024-06-16 17:59] VITALS: BP 146/89; PULSE 88; RESP 18; TEMP 97.8; O2SAT 96
[2024-06-16] MEDS ORDERED: ACETAMINOPHEN 500 MG TABLET PO ONE (21:30)
== END 2024-06-16 22:41 | disposition home or self-care (01) ==
LOC: EMS 17:54
DX: G89.29 Other chronic pain (principal); M79.671 Pain in right foot; M79.672 Pain in left foot; I10 Essential (primary) hypertension; F20.9 Schizophrenia, unspecified
CPT/HCPCS: 99282; Z7502

== ENCOUNTER 2024-06-20 21:35 | Emergency (ER) | payer OTHER ==
[~2024-06-20] VITALS: Ht 182.9 cm; Wt 90.0 kg
[2024-06-20 21:43] VITALS: BP 153/100; PULSE 84; RESP 18; TEMP 98.4; O2SAT 100
== END 2024-06-21 01:12 | disposition home or self-care (01) ==
LOC: EMS 21:35
DX: G89.29 Other chronic pain (principal); M79.604 Pain in right leg; M79.605 Pain in left leg; I10 Essential (primary) hypertension; F20.9 Schizophrenia, unspecified
CPT/HCPCS: 99281; 99282; Z7502

== ENCOUNTER 2024-06-21 22:04 | Emergency (ER) | payer OTHER ==
[~2024-06-21] VITALS: Ht 180.3 cm; Wt 95.0 kg
[2024-06-21 22:06] VITALS: BP 149/79; PULSE 88; RESP 18; TEMP 98; O2SAT 100
== END 2024-06-22 01:44 | disposition left against medical advice (07) ==
LOC: EMS 22:04
DX: M79.671 Pain in right foot (principal); M79.672 Pain in left foot; Z53.21 Procedure and treatment not carried out due to patient leaving prior to being seen by health care provider
CPT/HCPCS: 99281; Z7502

== ENCOUNTER 2024-06-22 17:00 | Emergency (ER) | payer OTHER ==
[~2024-06-22] VITALS: Ht 182.9 cm; Wt 90.0 kg
[2024-06-22 17:06] VITALS: BP 133/92; PULSE 76; RESP 18; TEMP 97.9; O2SAT 98
== END 2024-06-22 20:29 | disposition home or self-care (01) ==
LOC: EMS 17:00
DX: S90.812A Abrasion, left foot, initial encounter (principal); S90.811A Abrasion, right foot, initial encounter; I10 Essential (primary) hypertension; F20.9 Schizophrenia, unspecified; Z76.5 Malingerer [conscious simulation]; Z59.00 Homelessness unspecified; X58.XXXA Exposure to other specified factors, initial encounter; Y93.89 Activity, other specified; Y92.89 Other specified places as the place of occurrence of the external cause; Y99.8 Other external cause status
CPT/HCPCS: 99281; Z7502

== ENCOUNTER 2024-06-23 19:11 | Emergency (ER) | payer OTHER ==
[~2024-06-23] VITALS: Ht 182.9 cm; Wt 90.0 kg
[2024-06-23 20:01] VITALS: BP 146/90; PULSE 75; RESP 18; TEMP 98.1; O2SAT 98
[2024-06-24] MEDS: ACETAMINOPHEN 325 MG TABLET PO ONE (03:02)
== END 2024-06-24 03:05 | disposition home or self-care (01) ==
LOC: EMS 19:11
DX: G89.29 Other chronic pain (principal); M79.671 Pain in right foot; M79.672 Pain in left foot; I10 Essential (primary) hypertension; F20.9 Schizophrenia, unspecified
CPT/HCPCS: 99282; Z7502; Z7610

== ENCOUNTER 2024-06-29 17:16 | Emergency (ER) | payer OTHER ==
[~2024-06-29] VITALS: Ht 180.3 cm; Wt 90.9 kg
[2024-06-29 18:15] VITALS: TEMP 98.6
[2024-06-29 18:38] VITALS: BP 149/97; PULSE 98; RESP 18; O2SAT 97
== END 2024-06-29 18:38 | disposition home or self-care (01) ==
LOC: EMS 17:16
DX: M79.672 Pain in left foot (principal); M79.671 Pain in right foot; Z76.5 Malingerer [conscious simulation]; I10 Essential (primary) hypertension; F20.9 Schizophrenia, unspecified
CPT/HCPCS: 99281; Z7502

== ENCOUNTER 2024-07-06 19:55 | Emergency (ER) | payer OTHER ==
[~2024-07-06] VITALS: Ht 180.3 cm; Wt 95.0 kg
[2024-07-06 19:59] VITALS: BP 145/90; PULSE 80; RESP 18; TEMP 98.9; O2SAT 98
== END 2024-07-07 01:07 | disposition home or self-care (01) ==
LOC: EMS 19:56
DX: M79.673 Pain in unspecified foot (principal); G89.29 Other chronic pain; I10 Essential (primary) hypertension; Z59.00 Homelessness unspecified; F20.9 Schizophrenia, unspecified
CPT/HCPCS: 99281; Z7502

== ENCOUNTER 2024-07-10 18:25 | Emergency (ER) | payer OTHER ==
[~2024-07-10] VITALS: Ht 180.3 cm; Wt 95.0 kg
[2024-07-10 18:29] VITALS: BP 141/84; PULSE 78; RESP 18; TEMP 98.2; O2SAT 98
[2024-07-10] MEDS: ACETAMINOPHEN 500 MG TABLET PO ONE (19:34)
== END 2024-07-10 19:40 | disposition home or self-care (01) ==
LOC: EMS 18:25
DX: G89.29 Other chronic pain (principal); M79.671 Pain in right foot; M79.672 Pain in left foot; I10 Essential (primary) hypertension; F20.9 Schizophrenia, unspecified
CPT/HCPCS: 99282; Z7502; Z7610

== ENCOUNTER 2024-07-12 13:08 | Emergency (ER) | payer OTHER ==
[~2024-07-12] VITALS: Ht 182.9 cm; Wt 84.1 kg
[2024-07-12 13:10] VITALS: BP 159/82; PULSE 89; RESP 14; TEMP 98.7; O2SAT 100
== END 2024-07-12 18:02 | disposition home or self-care (01) ==
LOC: EMS 13:09
DX: G89.29 Other chronic pain (principal); M79.673 Pain in unspecified foot; I10 Essential (primary) hypertension; F20.9 Schizophrenia, unspecified
CPT/HCPCS: 99282; Z7502

== ENCOUNTER 2024-07-15 20:00 | Emergency (ER) | payer OTHER ==
[~2024-07-15] VITALS: Ht 182.9 cm; Wt 84.1 kg
[2024-07-15 20:22] VITALS: BP 150/104; PULSE 87; RESP 18; TEMP 98.1; O2SAT 100
== END 2024-07-16 01:21 | disposition home or self-care (01) ==
LOC: EMS 20:00
DX: F25.9 Schizoaffective disorder, unspecified (principal); Z76.5 Malingerer [conscious simulation]; I10 Essential (primary) hypertension; Z59.00 Homelessness unspecified
CPT/HCPCS: 99281; Z7502

== ENCOUNTER 2024-07-16 19:31 | Emergency (ER) | payer OTHER ==
[~2024-07-16] VITALS: Ht 182.9 cm; Wt 84.0 kg
[2024-07-16 20:33] VITALS: BP 150/104; PULSE 88; RESP 18; TEMP 98.7; O2SAT 100
[2024-07-16] MEDS: ACETAMINOPHEN 325 MG TABLET PO ONE (22:44)
== END 2024-07-16 22:46 | disposition home or self-care (01) ==
LOC: EMS 19:31
DX: G89.29 Other chronic pain (principal); M79.673 Pain in unspecified foot; F20.9 Schizophrenia, unspecified; I10 Essential (primary) hypertension
CPT/HCPCS: 99282; Z7502; Z7610

== ENCOUNTER 2024-07-17 15:25 | Emergency (ER) | payer OTHER ==
[~2024-07-17] VITALS: Ht 182.9 cm; Wt 84.0 kg
[2024-07-17 15:33] VITALS: BP 131/87; PULSE 81; RESP 18; TEMP 98.2; O2SAT 98
== END 2024-07-17 17:48 | disposition left against medical advice (07) ==
LOC: EMS 15:25
DX: M79.673 Pain in unspecified foot (principal); Z53.21 Procedure and treatment not carried out due to patient leaving prior to being seen by health care provider

== ENCOUNTER 2024-07-18 15:07 | Emergency (ER) | payer OTHER ==
[~2024-07-18] VITALS: Ht 180.3 cm; Wt 90.9 kg
[2024-07-18 15:13] VITALS: BP 144/75; PULSE 84; RESP 18; TEMP 97.9; O2SAT 99
[2024-07-18] MEDS: ACETAMINOPHEN 500 MG TABLET PO ONE (15:43)
== END 2024-07-18 15:45 | disposition home or self-care (01) ==
LOC: EMS 15:08
DX: M79.673 Pain in unspecified foot (principal); I10 Essential (primary) hypertension; F20.9 Schizophrenia, unspecified; G89.29 Other chronic pain; Z59.00 Homelessness unspecified
CPT/HCPCS: 99282; Z7502; Z7610

== ENCOUNTER 2024-07-21 20:06 | Emergency (ER) | payer OTHER ==
[~2024-07-21] VITALS: Ht 180.3 cm; Wt 90.9 kg
[2024-07-21 20:11] VITALS: BP 150/106; PULSE 89; RESP 18; TEMP 98.4; O2SAT 99
== END 2024-07-22 04:05 | disposition home or self-care (01) ==
LOC: EMS 20:06
DX: G89.29 Other chronic pain (principal); M19.90 Unspecified osteoarthritis, unspecified site; M79.673 Pain in unspecified foot; F20.9 Schizophrenia, unspecified; I10 Essential (primary) hypertension
CPT/HCPCS: 99282; Z7502

== ENCOUNTER 2024-07-23 18:42 | Emergency (ER) | payer OTHER ==
[~2024-07-23] VITALS: Ht 180.3 cm; Wt 88.0 kg
[2024-07-23 20:03] VITALS: BP 149/89; PULSE 78; RESP 18; TEMP 98.1; O2SAT 100
== END 2024-07-23 20:54 | disposition home or self-care (01) ==
LOC: EMS 18:42
DX: M79.673 Pain in unspecified foot (principal); F20.9 Schizophrenia, unspecified; I10 Essential (primary) hypertension; Z76.5 Malingerer [conscious simulation]; Z59.00 Homelessness unspecified; Z79.899 Other long term (current) drug therapy
CPT/HCPCS: 99281; Z7502

== ENCOUNTER 2024-07-24 18:29 | Emergency (ER) | payer OTHER ==
[~2024-07-24] VITALS: Ht 177.8 cm; Wt 90.0 kg
[2024-07-24 19:01] VITALS: BP 156/70; PULSE 72; RESP 18; TEMP 98.2; O2SAT 100
== END 2024-07-24 20:51 | disposition home or self-care (01) ==
LOC: EDUNIT# 18:29 → EMS 18:31
DX: I10 Essential (primary) hypertension (principal); F20.9 Schizophrenia, unspecified; Z76.5 Malingerer [conscious simulation]
CPT/HCPCS: 99281; Z7502

== ENCOUNTER 2024-07-27 04:22 | Emergency (ER) | payer OTHER ==
[~2024-07-27] VITALS: Ht 177.8 cm; Wt 75.0 kg
[2024-07-27] MEDS: PERTUSS(ACELL),DIPH,TET/PF 0.5 ML SYRINGE [ADULT] IM. ONE (04:39)
[2024-07-27] MEDS: LIDOCAINE 1% 10 ML VIAL SQ ONE (04:40)
[2024-07-27] MEDS: BACITRACIN 0.9 GM PACKET OINTMENT TP ONE (06:22)
[2024-07-27] MEDS: LIDOCAINE 1%/EPI 1:200,000/PF 10 ML VIAL SQ ONE (06:22)
[2024-07-27 07:10] VITALS: BP 137/89; PULSE 79; RESP 18; TEMP 97.3; O2SAT 96
== END 2024-07-27 07:16 | disposition home or self-care (01) ==
LOC: EMS 04:22
DX: S01.81XA Laceration without foreign body of other part of head, initial encounter (principal); F20.9 Schizophrenia, unspecified; I10 Essential (primary) hypertension; W01.0XXA Fall on same level from slipping, tripping and stumbling without subsequent striking against object, initial encounter; Y93.89 Activity, other specified; Y92.89 Other specified places as the place of occurrence of the external cause; Y99.8 Other external cause status
CPT/HCPCS: 99283; 90715; 90471; 12011; J3490 ×2

== ENCOUNTER 2024-07-28 20:31 | Emergency (ER) | payer OTHER ==
[~2024-07-28] VITALS: Ht 188 cm; Wt 81.8 kg
[2024-07-28 21:04] VITALS: BP 168/89; PULSE 86; RESP 18; TEMP 98; O2SAT 95
[2024-07-28] MEDS: ACETAMINOPHEN 500 MG TABLET PO ONE (22:02)
== END 2024-07-28 22:12 | disposition home or self-care (01) ==
LOC: EMS 20:31
DX: G89.29 Other chronic pain (principal); S01.81XD Laceration without foreign body of other part of head, subsequent encounter; I10 Essential (primary) hypertension; F20.9 Schizophrenia, unspecified; M79.671 Pain in right foot; M79.672 Pain in left foot; X58.XXXA Exposure to other specified factors, initial encounter
CPT/HCPCS: 99282; Z7502; Z7610

== ENCOUNTER 2024-07-29 21:11 | Emergency (ER) | payer OTHER ==
[~2024-07-29] VITALS: Ht 188 cm; Wt 81.8 kg
[2024-07-29 21:14] VITALS: BP 135/85; PULSE 85; RESP 16; TEMP 98; O2SAT 100
== END 2024-07-30 00:04 | disposition left against medical advice (07) ==
LOC: EMS 21:11
DX: M79.673 Pain in unspecified foot (principal); Z53.21 Procedure and treatment not carried out due to patient leaving prior to being seen by health care provider
CPT/HCPCS: 99281; Z7502

== ENCOUNTER 2024-07-30 19:46 | Emergency (ER) | payer OTHER ==
[~2024-07-30] VITALS: Ht 188 cm; Wt 81.8 kg
[2024-07-30 20:05] VITALS: BP 155/112; PULSE 89; RESP 18; TEMP 98.5; O2SAT 100
[2024-07-31] MEDS: ACETAMINOPHEN 500 MG TABLET PO ONE (00:08)
== END 2024-07-31 00:07 | disposition home or self-care (01) ==
LOC: EMS 19:46
DX: M79.673 Pain in unspecified foot (principal); G89.29 Other chronic pain; I10 Essential (primary) hypertension; F20.9 Schizophrenia, unspecified
CPT/HCPCS: 99282; Z7502; Z7610

== ENCOUNTER 2024-07-31 20:17 | Emergency (ER) | payer OTHER ==
[~2024-07-31] VITALS: Ht 182.9 cm; Wt 81.0 kg
[2024-07-31 20:21] VITALS: BP 156/93; PULSE 78; RESP 18; TEMP 97.8; O2SAT 97
== END 2024-07-31 20:59 | disposition home or self-care (01) ==
LOC: EMS 20:17
DX: F20.9 Schizophrenia, unspecified (principal); I10 Essential (primary) hypertension; Z76.5 Malingerer [conscious simulation]
CPT/HCPCS: 99281; 99282; Z7502

== ENCOUNTER 2024-08-05 21:47 | Emergency (ER) | payer OTHER ==
[~2024-08-05] VITALS: Ht 188 cm; Wt 82.0 kg
[2024-08-05 21:52] VITALS: BP 145/77; PULSE 73; RESP 18; TEMP 98.7; O2SAT 98
[2024-08-06] MEDS: ACETAMINOPHEN 500 MG TABLET PO ONE (00:25)
== END 2024-08-06 00:25 | disposition home or self-care (01) ==
LOC: EMS 21:47
DX: M79.671 Pain in right foot (principal); M79.672 Pain in left foot; G89.29 Other chronic pain; I10 Essential (primary) hypertension; F20.9 Schizophrenia, unspecified; Z59.00 Homelessness unspecified
CPT/HCPCS: 99282; Z7502; Z7610

== ENCOUNTER 2024-08-07 20:10 | Emergency (ER) | payer OTHER ==
[~2024-08-07] VITALS: Ht 188 cm; Wt 95.0 kg
[2024-08-07 20:19] VITALS: BP 138/85; PULSE 78; RESP 15; TEMP 98.3; O2SAT 100
== END 2024-08-08 03:01 | disposition home or self-care (01) ==
LOC: EMS 20:10
DX: M79.672 Pain in left foot (principal); M79.671 Pain in right foot; G89.29 Other chronic pain; I10 Essential (primary) hypertension; F20.9 Schizophrenia, unspecified
CPT/HCPCS: 99281; 99282; Z7502

== ENCOUNTER 2024-08-12 19:59 | Emergency (ER) | payer OTHER ==
[~2024-08-12] VITALS: Ht 188 cm; Wt 95.0 kg
[2024-08-12 20:06] VITALS: BP 139/90; PULSE 86; RESP 18; TEMP 98.3; O2SAT 100
[2024-08-12] MEDS: ACETAMINOPHEN 325 MG TABLET PO ONE (20:26)
== END 2024-08-12 20:47 | disposition home or self-care (01) ==
LOC: EMS 19:59
DX: M79.672 Pain in left foot (principal); M79.671 Pain in right foot; G89.29 Other chronic pain; I10 Essential (primary) hypertension
CPT/HCPCS: 99282; Z7502; Z7610

== ENCOUNTER 2024-08-18 20:23 | Emergency (ER) | payer OTHER ==
[~2024-08-18] VITALS: Ht 188 cm; Wt 95.0 kg
[2024-08-18 20:27] VITALS: BP 145/95; PULSE 85; RESP 18; TEMP 98.6; O2SAT 99
[2024-08-18] MEDS: ACETAMINOPHEN 500 MG TABLET PO ONE (20:57)
== END 2024-08-18 21:25 | disposition home or self-care (01) ==
LOC: EMS 20:23
DX: M79.672 Pain in left foot (principal); M79.671 Pain in right foot; G89.29 Other chronic pain; I10 Essential (primary) hypertension; F20.9 Schizophrenia, unspecified
CPT/HCPCS: 99282; Z7502; Z7610

== ENCOUNTER 2024-08-19 19:54 | Emergency (ER) | payer OTHER ==
[~2024-08-19] VITALS: Ht 188 cm; Wt 95.0 kg
[2024-08-19 21:16] VITALS: BP 137/82; PULSE 80; RESP 16; TEMP 97.005200; O2SAT 97
[2024-08-19] MEDS: IBUPROFEN 600 MG TABLET PO ONE (21:20)
== END 2024-08-19 21:22 | disposition home or self-care (01) ==
LOC: EMS 19:54
DX: M79.672 Pain in left foot (principal); M79.671 Pain in right foot; G89.29 Other chronic pain; F20.9 Schizophrenia, unspecified; I10 Essential (primary) hypertension
CPT/HCPCS: 99282; Z7502; Z7610

== ENCOUNTER 2024-08-20 20:24 | Emergency (ER) | payer OTHER ==
[~2024-08-20] VITALS: Ht 188 cm; Wt 95.0 kg
[2024-08-20 20:27] VITALS: BP 133/75; PULSE 78; RESP 16; TEMP 98; O2SAT 98
[2024-08-21] MEDS: ACETAMINOPHEN 325 MG TABLET PO ONE (04:01)
== END 2024-08-21 04:01 | disposition home or self-care (01) ==
LOC: EMS 20:24
DX: G89.29 Other chronic pain (principal); M79.671 Pain in right foot; M79.672 Pain in left foot; I10 Essential (primary) hypertension; F20.9 Schizophrenia, unspecified
CPT/HCPCS: 99282; Z7502; Z7610

== ENCOUNTER 2024-08-22 19:02 | Emergency (ER) | payer OTHER ==
[~2024-08-22] VITALS: Ht 188 cm; Wt 95.0 kg
[2024-08-22 19:07] VITALS: BP 133/87; PULSE 78; RESP 18; TEMP 98.4; O2SAT 97
[2024-08-23] MEDS: ACETAMINOPHEN 500 MG TABLET PO ONE (00:44)
== END 2024-08-23 00:44 | disposition home or self-care (01) ==
LOC: EMS 19:06
DX: G89.29 Other chronic pain (principal); M79.671 Pain in right foot; M79.672 Pain in left foot; I10 Essential (primary) hypertension; F20.9 Schizophrenia, unspecified
CPT/HCPCS: 99282; Z7502

== ENCOUNTER 2024-08-26 17:21 | Emergency (ER) | payer OTHER ==
[~2024-08-26] VITALS: Ht 182.9 cm; Wt 95.5 kg
[2024-08-26 17:35] VITALS: TEMP 98.1
[2024-08-26] MEDS: ACETAMINOPHEN 500 MG TABLET PO ONE (18:27)
[2024-08-26 18:45] VITALS: BP 135/80; PULSE 90; RESP 18; O2SAT 99
== END 2024-08-26 19:02 | disposition home or self-care (01) ==
LOC: EMS 17:21
DX: G89.29 Other chronic pain (principal); M79.604 Pain in right leg; M79.605 Pain in left leg; I10 Essential (primary) hypertension; F20.9 Schizophrenia, unspecified
CPT/HCPCS: 99282; Z7502; Z7610

== ENCOUNTER 2024-08-28 19:49 | Emergency (ER) | payer OTHER ==
[~2024-08-28] VITALS: Ht 177.8 cm; Wt 72.7 kg
[2024-08-28 19:59] VITALS: BP 132/76; PULSE 97; RESP 16; TEMP 98.8; O2SAT 97
== END 2024-08-28 22:43 | disposition left against medical advice (07) ==
LOC: EMS 19:50
DX: M79.673 Pain in unspecified foot (principal); Z53.21 Procedure and treatment not carried out due to patient leaving prior to being seen by health care provider

== ENCOUNTER 2024-09-02 20:11 | Emergency (ER) | payer OTHER ==
[~2024-09-02] VITALS: Ht 180.3 cm; Wt 90.0 kg
[2024-09-02 20:15] VITALS: BP 143/98; PULSE 78; RESP 16; TEMP 97.9; O2SAT 97
== END 2024-09-03 05:30 | disposition home or self-care (01) ==
LOC: EMS 20:11
DX: G89.29 Other chronic pain (principal); M79.671 Pain in right foot; M79.672 Pain in left foot; I10 Essential (primary) hypertension; F20.9 Schizophrenia, unspecified
CPT/HCPCS: 99282; Z7502

== ENCOUNTER 2024-09-10 20:34 | Emergency (ER) | payer OTHER ==
[~2024-09-10] VITALS: Ht 172.7 cm; Wt 72.7 kg
[2024-09-10 20:40] VITALS: BP 149/88; PULSE 68; RESP 16; TEMP 97.9; O2SAT 95
[2024-09-10] MEDS: ACETAMINOPHEN 325 MG TABLET PO ONE (22:43)
== END 2024-09-10 22:40 | disposition home or self-care (01) ==
LOC: EMS 20:34
DX: G89.29 Other chronic pain (principal); M79.673 Pain in unspecified foot; F20.9 Schizophrenia, unspecified; I10 Essential (primary) hypertension
CPT/HCPCS: 99282; Z7502

== ENCOUNTER 2024-09-12 21:38 | Emergency (ER) | payer OTHER ==
[~2024-09-12] VITALS: Ht 172.7 cm; Wt 72.7 kg
[2024-09-12 21:44] VITALS: BP 152/99; PULSE 70; RESP 18; TEMP 97.9; O2SAT 96
[2024-09-13] MEDS: ACETAMINOPHEN 325 MG TABLET PO ONE (03:29)
== END 2024-09-13 03:33 | disposition home or self-care (01) ==
LOC: EMS 21:39
DX: G89.29 Other chronic pain (principal); M79.671 Pain in right foot; M79.672 Pain in left foot; I10 Essential (primary) hypertension; F20.9 Schizophrenia, unspecified
CPT/HCPCS: 99282; Z7502; Z7610

== ENCOUNTER 2024-09-13 21:24 | Emergency (ER) | payer OTHER ==
[~2024-09-13] VITALS: Ht 182.9 cm; Wt 72.7 kg
[2024-09-13 21:28] VITALS: BP 149/98; PULSE 71; RESP 18; TEMP 98; O2SAT 94
[2024-09-13] MEDS: ACETAMINOPHEN 325 MG TABLET PO ONE ×2 (22:53→22:54)
== END 2024-09-13 22:56 | disposition home or self-care (01) ==
LOC: EMS 21:24
DX: G89.29 Other chronic pain (principal); M79.671 Pain in right foot; M79.672 Pain in left foot; F20.9 Schizophrenia, unspecified; I10 Essential (primary) hypertension
CPT/HCPCS: 99282; Z7502; Z7610

== ENCOUNTER 2024-09-15 20:06 | Emergency (ER) | payer OTHER ==
[~2024-09-15] VITALS: Ht 170.2 cm; Wt 85.0 kg
[2024-09-15 20:16] VITALS: BP 140/88; PULSE 74; RESP 16; TEMP 97.8; O2SAT 98
== END 2024-09-16 02:09 | disposition left against medical advice (07) ==
LOC: EMS 20:06
DX: M79.673 Pain in unspecified foot (principal); Z53.21 Procedure and treatment not carried out due to patient leaving prior to being seen by health care provider

== ENCOUNTER 2024-09-16 20:15 | Emergency (ER) | payer OTHER ==
[~2024-09-16] VITALS: Ht 185.4 cm; Wt 73.0 kg
[2024-09-16 20:20] VITALS: BP 145/77; PULSE 77; RESP 16; TEMP 97.9; O2SAT 98
[2024-09-16] MEDS: IBUPROFEN 600 MG TABLET PO ONE (20:48)
== END 2024-09-16 20:59 | disposition home or self-care (01) ==
LOC: EMS 20:15
DX: G89.29 Other chronic pain (principal); M79.671 Pain in right foot; M79.672 Pain in left foot; F20.9 Schizophrenia, unspecified; I10 Essential (primary) hypertension; Z48.02 Encounter for removal of sutures
CPT/HCPCS: 99282; Z7502; Z7610

== ENCOUNTER 2024-09-17 20:53 | Emergency (ER) | payer OTHER ==
[~2024-09-17] VITALS: Ht 177.8 cm; Wt 73.0 kg
[2024-09-17 20:57] VITALS: BP 154/100; PULSE 79; RESP 18; TEMP 98; O2SAT 95
[2024-09-17] MEDS: ACETAMINOPHEN 500 MG TABLET PO ONE (21:40)
== END 2024-09-17 21:42 | disposition home or self-care (01) ==
LOC: EMS 20:54
DX: F25.9 Schizoaffective disorder, unspecified (principal); Z76.5 Malingerer [conscious simulation]; I10 Essential (primary) hypertension; Z59.00 Homelessness unspecified
CPT/HCPCS: 99282; Z7502; Z7610

== ENCOUNTER 2024-09-20 21:11 | Emergency (ER) | payer OTHER ==
[~2024-09-20] VITALS: Ht 180.3 cm; Wt 72.7 kg
[2024-09-20 21:12] VITALS: BP 142/96; PULSE 88; RESP 18; TEMP 97.8; O2SAT 96
[2024-09-20] MEDS ORDERED: IBUPROFEN 200 MG TABLET PO ONE (21:30)
[2024-09-20] MEDS: IBUPROFEN 400 MG TABLET PO ONE (22:00)
== END 2024-09-20 22:17 | disposition home or self-care (01) ==
LOC: EMS 21:11
DX: Z76.5 Malingerer [conscious simulation] (principal); F20.9 Schizophrenia, unspecified; I10 Essential (primary) hypertension; Z59.00 Homelessness unspecified
CPT/HCPCS: 99282; Z7502; Z7610

== ENCOUNTER 2024-09-22 19:08 | Emergency (ER) | payer OTHER ==
[~2024-09-22] VITALS: Ht 172.7 cm; Wt 87.0 kg
[2024-09-22 19:29] VITALS: BP 145/80; PULSE 78; RESP 18; TEMP 98; O2SAT 98
== END 2024-09-22 19:32 | disposition home or self-care (01) ==
LOC: EMS 19:08
DX: M79.672 Pain in left foot (principal); M79.671 Pain in right foot; F20.9 Schizophrenia, unspecified; I10 Essential (primary) hypertension; Z59.00 Homelessness unspecified; Z76.5 Malingerer [conscious simulation]
CPT/HCPCS: 99282; 99285; Z7502

== ENCOUNTER 2024-09-23 19:40 | Emergency (ER) | payer OTHER ==
[~2024-09-23] VITALS: Ht 182.9 cm; Wt 90.9 kg
[2024-09-23] MEDS: ACETAMINOPHEN 325 MG TABLET PO ONE (20:24)
[2024-09-23 21:29] VITALS: BP 142/86; PULSE 76; RESP 16; TEMP 98.2; O2SAT 98
== END 2024-09-23 21:30 | disposition home or self-care (01) ==
LOC: EMS 19:40
DX: M79.672 Pain in left foot (principal); M79.671 Pain in right foot; G89.29 Other chronic pain; F20.9 Schizophrenia, unspecified; I10 Essential (primary) hypertension
CPT/HCPCS: 99282; Z7502; Z7610

== ENCOUNTER 2024-09-24 19:48 | Emergency (ER) | payer OTHER ==
[~2024-09-24] VITALS: Ht 180.3 cm; Wt 86.4 kg
[2024-09-24 19:55] VITALS: BP 141/86; PULSE 86; RESP 16; TEMP 98; O2SAT 100
[2024-09-24] MEDS: ACETAMINOPHEN 325 MG TABLET PO ONE (22:56)
== END 2024-09-25 | disposition left against medical advice (07) ==
LOC: EMS 19:48
DX: M79.673 Pain in unspecified foot (principal); Z53.21 Procedure and treatment not carried out due to patient leaving prior to being seen by health care provider
CPT/HCPCS: Z7610

== ENCOUNTER 2024-09-25 18:26 | Emergency (ER) | payer OTHER ==
[~2024-09-25] VITALS: Ht 182.9 cm; Wt 86.4 kg
[2024-09-25 18:33] VITALS: BP 142/84; PULSE 76; RESP 18; TEMP 98; O2SAT 99
[2024-09-25] MEDS: ACETAMINOPHEN 500 MG TABLET PO ONE (21:29)
== END 2024-09-25 21:33 | disposition home or self-care (01) ==
LOC: EMS 18:26
DX: G89.29 Other chronic pain (principal); M79.671 Pain in right foot; M79.672 Pain in left foot; F20.9 Schizophrenia, unspecified; I10 Essential (primary) hypertension
CPT/HCPCS: 99282; Z7502; Z7610

== ENCOUNTER 2024-09-28 22:27 | Emergency (ER) | payer OTHER ==
[~2024-09-28] VITALS: Ht 177.8 cm; Wt 90.9 kg
[2024-09-28] MEDS: ACETAMINOPHEN 500 MG TABLET PO ONE (23:19)
[2024-09-28 23:21] VITALS: BP 142/92; PULSE 71; RESP 18; TEMP 98.005280; O2SAT 99
== END 2024-09-28 23:22 | disposition home or self-care (01) ==
LOC: EMS 22:27
DX: G89.29 Other chronic pain (principal); M79.672 Pain in left foot; I10 Essential (primary) hypertension; F20.9 Schizophrenia, unspecified; Z59.00 Homelessness unspecified
CPT/HCPCS: 99282; Z7502; Z7610

== ENCOUNTER 2024-09-29 22:15 | Emergency (ER) | payer OTHER ==
[~2024-09-29] VITALS: Ht 188 cm; Wt 90.9 kg
[2024-09-29 22:30] VITALS: BP 133/80; PULSE 88; RESP 18; TEMP 97.9; O2SAT 98
[2024-09-29] MEDS: ACETAMINOPHEN 500 MG TABLET PO ONE (22:48)
== END 2024-09-29 22:53 | disposition home or self-care (01) ==
LOC: EMS 22:15
DX: G89.29 Other chronic pain (principal); M79.671 Pain in right foot; M79.672 Pain in left foot; I10 Essential (primary) hypertension; F20.9 Schizophrenia, unspecified
CPT/HCPCS: 99282; Z7502; Z7610

== ENCOUNTER 2024-09-30 19:51 | Emergency (ER) | payer OTHER ==
[~2024-09-30] VITALS: Ht 180.3 cm; Wt 86.4 kg
[2024-09-30 19:59] VITALS: BP 139/84; PULSE 87; RESP 16; TEMP 97.7; O2SAT 100
[2024-10-01] MEDS ORDERED: ACET-3385 PO (20:45)
== END 2024-09-30 22:23 | disposition home or self-care (01) ==
LOC: EMS 19:54
DX: M79.673 Pain in unspecified foot (principal); F20.9 Schizophrenia, unspecified; I10 Essential (primary) hypertension; G89.29 Other chronic pain; Z76.5 Malingerer [conscious simulation]; Z59.00 Homelessness unspecified
CPT/HCPCS: 99282; Z7502

== ENCOUNTER 2024-10-01 20:00 | Emergency (ER) | payer OTHER ==
[~2024-10-01] VITALS: Ht 180.3 cm; Wt 86.0 kg
[2024-10-01 20:28] VITALS: BP 150/102; PULSE 84; RESP 18; TEMP 98.6; O2SAT 97
[2024-10-01] MEDS ORDERED: ACET-3385 PO (20:45)
[2024-10-01] MEDS: ACETAMINOPHEN 500 MG TABLET PO ONE (20:51)
== END 2024-10-01 20:53 | disposition home or self-care (01) ==
LOC: EMS 20:00
DX: G89.29 Other chronic pain (principal); M79.673 Pain in unspecified foot; F20.9 Schizophrenia, unspecified; I10 Essential (primary) hypertension
CPT/HCPCS: 99282; Z7502; Z7610

== ENCOUNTER 2024-10-02 20:17 | Emergency (ER) | payer OTHER ==
[~2024-10-02] VITALS: Ht 180.3 cm; Wt 86.0 kg
[~2024-10-02 20:17] MED LIST changes: +ACET-3385 PO; -BUSP10TA23 PO; -CARB100T12 PO; -CITA10TA99 PO
[2024-10-02 20:20] VITALS: BP 160/98; PULSE 88; RESP 18; TEMP 98.5; O2SAT 99
[2024-10-03] MEDS: ACETAMINOPHEN 325 MG TABLET PO ONE (01:34)
[2024-10-03] MEDS: IBUPROFEN 600 MG TABLET PO ONE (01:34)
== END 2024-10-03 02:33 | disposition home or self-care (01) ==
LOC: EMS 20:17
DX: M06.9 Rheumatoid arthritis, unspecified (principal); G89.29 Other chronic pain; M79.673 Pain in unspecified foot; F20.9 Schizophrenia, unspecified; I10 Essential (primary) hypertension; Z79.899 Other long term (current) drug therapy
CPT/HCPCS: 99283

== ENCOUNTER 2024-10-03 17:08 | Emergency (ER) | payer OTHER ==
[~2024-10-03] VITALS: Ht 180.3 cm; Wt 86.0 kg
[2024-10-03 17:10] VITALS: BP 142/92; PULSE 72; RESP 18; TEMP 98.8; O2SAT 99
[2024-10-03] MEDS: ACETAMINOPHEN 500 MG TABLET PO ONE (17:48)
== END 2024-10-03 17:49 | disposition home or self-care (01) ==
LOC: EMS 17:08
DX: G89.29 Other chronic pain (principal); M79.672 Pain in left foot; M79.671 Pain in right foot; F20.9 Schizophrenia, unspecified; I10 Essential (primary) hypertension; Z79.899 Other long term (current) drug therapy
CPT/HCPCS: 99282; Z7502; Z7610

== ENCOUNTER 2024-10-05 19:35 | Emergency (ER) | payer OTHER ==
[~2024-10-05] VITALS: Ht 180.3 cm; Wt 86.0 kg
[2024-10-05 19:41] VITALS: BP 140/84; PULSE 70; RESP 18; TEMP 98.3; O2SAT 98
[2024-10-05] MEDS: ACETAMINOPHEN 500 MG TABLET PO ONE (20:23)
== END 2024-10-05 20:29 | disposition home or self-care (01) ==
LOC: EMS 19:35
DX: G89.29 Other chronic pain (principal); M79.671 Pain in right foot; M79.672 Pain in left foot; F20.9 Schizophrenia, unspecified; I10 Essential (primary) hypertension; Z79.899 Other long term (current) drug therapy
CPT/HCPCS: 99282; Z7502; Z7610

== ENCOUNTER 2024-10-06 20:05 | Emergency (ER) | payer OTHER ==
[~2024-10-06] VITALS: Ht 180.3 cm; Wt 86.4 kg
[2024-10-06 20:27] VITALS: BP 134/79; PULSE 83; RESP 18; TEMP 98.2; O2SAT 97
[2024-10-07] MEDS: ACETAMINOPHEN 325 MG TABLET PO ONE (00:22)
== END 2024-10-07 00:23 | disposition left against medical advice (07) ==
LOC: EMS 20:05
DX: M79.673 Pain in unspecified foot (principal); I10 Essential (primary) hypertension; F20.9 Schizophrenia, unspecified; Z59.00 Homelessness unspecified; Z53.21 Procedure and treatment not carried out due to patient leaving prior to being seen by health care provider

== ENCOUNTER 2024-10-07 20:08 | Emergency (ER) | payer OTHER ==
[~2024-10-07] VITALS: Ht 185.4 cm; Wt 86.0 kg
[2024-10-07 20:15] VITALS: BP 130/85; PULSE 79; RESP 15; TEMP 98.2; O2SAT 100
[2024-10-07] MEDS: ACETAMINOPHEN 500 MG TABLET PO ONE (20:40)
== END 2024-10-07 21:05 | disposition home or self-care (01) ==
LOC: EMS 20:08
DX: G89.29 Other chronic pain (principal); M79.672 Pain in left foot; M79.671 Pain in right foot; F20.9 Schizophrenia, unspecified; I10 Essential (primary) hypertension; Z79.899 Other long term (current) drug therapy
CPT/HCPCS: 99282; Z7502; Z7610

== ENCOUNTER 2024-10-08 20:30 | Emergency (ER) | payer OTHER ==
[~2024-10-08] VITALS: Ht 185.4 cm; Wt 86.0 kg
[2024-10-08 20:33] VITALS: BP 152/99; PULSE 83; RESP 18; TEMP 98; O2SAT 99
[2024-10-08] MEDS: ACETAMINOPHEN 325 MG TABLET PO ONE (21:22)
== END 2024-10-08 21:24 | disposition home or self-care (01) ==
LOC: EMS 20:30
DX: G89.29 Other chronic pain (principal); M79.671 Pain in right foot; M79.672 Pain in left foot; F20.9 Schizophrenia, unspecified; I10 Essential (primary) hypertension; Z79.899 Other long term (current) drug therapy
CPT/HCPCS: 99282; Z7502; Z7610

== ENCOUNTER 2024-10-09 14:16 | Emergency (ER) | payer OTHER ==
[~2024-10-09] VITALS: Ht 180.3 cm; Wt 70.9 kg
[2024-10-09 14:21] VITALS: BP 141/71; PULSE 72; RESP 18; TEMP 98.6; O2SAT 100
[2024-10-09] MEDS: ACETAMINOPHEN 500 MG TABLET PO ONE (14:32)
== END 2024-10-09 14:48 | disposition home or self-care (01) ==
LOC: EMS 14:18
DX: G89.29 Other chronic pain (principal); M79.671 Pain in right foot; M79.672 Pain in left foot; F20.9 Schizophrenia, unspecified; I10 Essential (primary) hypertension
CPT/HCPCS: 99283

== ENCOUNTER 2024-10-13 20:01 | Emergency (ER) | payer OTHER ==
[~2024-10-13] VITALS: Ht 175.3 cm; Wt 72.7 kg
[2024-10-13 20:54] VITALS: BP 153/94; PULSE 62; RESP 18; TEMP 97.8; O2SAT 96
[2024-10-13] MEDS ORDERED: ACETAMINOPHEN 500 MG TABLET PO ONE (21:15)
== END 2024-10-13 21:50 | disposition home or self-care (01) ==
LOC: EMS 21:30
DX: G89.29 Other chronic pain (principal); M79.671 Pain in right foot; M79.672 Pain in left foot; F20.9 Schizophrenia, unspecified; I10 Essential (primary) hypertension
CPT/HCPCS: 99282; Z7502; Z7610

== ENCOUNTER 2024-10-16 19:25 | Emergency (ER) | payer OTHER ==
[~2024-10-16] VITALS: Ht 172.7 cm; Wt 85.0 kg
[2024-10-16 20:27] VITALS: BP 148/88; PULSE 75; RESP 18; TEMP 97.8; O2SAT 98
== END 2024-10-17 00:57 | disposition left against medical advice (07) ==
LOC: EMS 19:25
DX: M79.673 Pain in unspecified foot (principal); Z53.21 Procedure and treatment not carried out due to patient leaving prior to being seen by health care provider

== ENCOUNTER 2024-10-25 03:29 | Emergency (ER) | payer OTHER ==
[2024-10-25] MEDS: ACETAMINOPHEN 325 MG TABLET PO ONE (05:33)
== END 2024-10-25 05:53 | disposition home or self-care (01) ==
LOC: EMS 03:29
DX: G89.29 Other chronic pain (principal); M79.671 Pain in right foot; M79.672 Pain in left foot; F20.9 Schizophrenia, unspecified; I10 Essential (primary) hypertension; M19.90 Unspecified osteoarthritis, unspecified site; Z59.00 Homelessness unspecified; Z53.21 Procedure and treatment not carried out due to patient leaving prior to being seen by health care provider
CPT/HCPCS: 99281; Z7502

== ENCOUNTER 2024-10-27 18:52 | Emergency (ER) | payer OTHER ==
[2024-10-27] MEDS: ACETAMINOPHEN 325 MG TABLET PO ONE (22:40)
== END 2024-10-27 22:40 | disposition home or self-care (01) ==
LOC: EMS 18:52
DX: G89.29 Other chronic pain (principal); M79.672 Pain in left foot; M79.671 Pain in right foot; M19.90 Unspecified osteoarthritis, unspecified site; Z59.00 Homelessness unspecified; F20.9 Schizophrenia, unspecified; I10 Essential (primary) hypertension
CPT/HCPCS: 99283

== ENCOUNTER 2024-10-28 18:54 | Emergency (ER) | payer OTHER ==
[~2024-10-28] VITALS: Ht 172.7 cm; Wt 85.0 kg
[2024-10-28 19:02] VITALS: BP 142/82; PULSE 78; RESP 16; TEMP 98.1; O2SAT 98
[2024-10-28] MEDS: ACETAMINOPHEN 500 MG TABLET PO ONE (19:32)
== END 2024-10-28 20:18 | disposition home or self-care (01) ==
LOC: EMS 18:55
DX: G89.29 Other chronic pain (principal); M79.671 Pain in right foot; M79.672 Pain in left foot; F20.9 Schizophrenia, unspecified; I10 Essential (primary) hypertension
CPT/HCPCS: 99283